=== PATIENT | female | born 1940 | race Caucasian/White ===

== ENCOUNTER 2019-04-21 10:33 | Emergency (ER) | payer MEDICARE, BC ==
[2019-04-21 10:42] VITALS: BP 137/76; PULSE 76; RESP 18; TEMP 98
--- NOTE | 2019-04-21 11:37 | US ---
EXAMINATION TYPE: US venous doppler duplex LE LT DATE OF EXAM: 04/21/2019 10:56 AM COMPARISON: NONE CLINICAL HISTORY: pain, swelling. SIDE PERFORMED: Left TECHNIQUE: The lower extremity deep venous system is examined utilizing real time linear array sonog moose with graded compression, doppler sonography and color-flow sonography. VESSELS IMAGED: External Iliac Vein (EIV) Common Femoral Vein Deep Femoral Vein Greater Saphenous Vein * Femoral Vein Popliteal Vein Small Saphenous Vein * Proximal Calf Veins (* superficial vessels) There is a 4.4 x 1.7 x 2.7 cm popliteal fossa cyst. Left Leg: Negative for DVT Fluid collection left medial pop fossa measures 4.4 x 1.7 x 2.7 cm. IMPRESSION: 1. THIS EXAMINATION IS NEGATIVE FOR DVT WITHIN THE LEFT LEG. 2. LEFT-SIDED POPLITEAL FOSSA CYST.
--- NOTE | 2019-04-21 11:46 | XR ---
EXAMINATION TYPE: XR knee complete LT , 3 VIEWS DATE OF EXAM ORDERED: 04/21/2019 HISTORY: pain, swelling. COMPARISON: None. FINDINGS: There is peaking of intercondylar spines. No fracture or dislocation is seen. There is ful lness in the suprapatellar region suggesting a small effusion. IMPRESSION: 1. NO ACUTE OSSEOUS LESION. 2. EARLIEST CHANGES OF OSTEOARTHRITIS WITH A CONCOMITANT EFFUSION.
--- NOTE | 2019-04-21 12:03 | ED ---
Lower Extremity Injury HPI - General Chief Complaint: Extremity Injury, Lower Stated Complaint: left knee pain Time Seen by Provider: 04/21/19 10:42 Source: patient, RN notes reviewed Mode of arrival: ambulatory Limitations: no limitations - History of Present Illness Initial Comments: 78-year-old female presents emergency Department with chief complaint of left knee pain. This has been ongoing injury. Patient did she initially had a fracture fibular head. Patient states that that healed over she was doing physical therapy states that she went to [place] and twisted her knee at the airport. She states that she went to get back in March ER bursitis. Patient has not. Recent with orthopedic physician. She states her knee is swollen, leg is swollen denies any fevers or chills. - Related Data Allergies Allergy/AdvReac Type Severity Reaction Status Date / Time No Known Allergies Allergy Verified 04/21/19 10:36 Review of Systems ROS Statement: Those systems with pertinent positive or pertinent negative responses have been documented in the HPI. ROS Other: All systems not noted in ROS Statement are negative. Past Medical History Past Medical History: Cancer, Hyperlipidemia, Hypertension History of Any Multi-Drug Resistant Organisms: None Reported Past Surgical History: Breast Surgery Additional Past Surgical History / Comment(s): L mastectomy, partial pancreas removed for "pre cancer" Past Psychological History: No Psychological Hx Reported Smoking Status: Former smoker Past Alcohol Use History: Occasional Past Drug Use History: None Reported General Exam Limitations: no limitations General appearance: alert, in no apparent distress Head exam: Present: atraumatic, normocephalic, normal inspection Respiratory exam: Present: normal lung sounds bilaterally. Absent: respiratory distress, wheezes, rales, rhonchi, stridor Cardiovascular Exam: Present: regular rate, normal rhythm, normal heart sounds. Absent: systolic murmur, diastolic murmur, rubs, gallop, clicks Extremities exam: Present: other (Left knee there is mild swelling noted, tenderness the popliteal region pedal pulses equal bilaterally there is minimal 1+ swelling, , patient has limited range of motion secondary to pain.) Neurological exam: Present: alert Skin exam: Present: warm, dry, intact, normal color. Absent: rash Course Vital Signs 04/21/19 10:36 Temperature 98 F Pulse Rate 76 Respiratory 18 Rate Blood Pressure 137/76 O2 Sat by Pulse 98 Oximetry Medical Decision Making - Medical Decision Making X-ray shows joint effusion, mild arthritis changes, ultrasound shows popliteal cyst negative for DVT, patient has a Rivas's cyst. Patient will follow-up with orthopedics. We discussed rest ice elevation anti-inflammatories Jae wrap was applied. Disposition Clinical Impression: Synovial cyst of popliteal space [Rivas], left knee, Left knee pain Disposition: HOME SELF-CARE Condition: Stable Instructions (If sedation given, give patient instructions): Knee Sprain (ED) Additional Instructions: Please return to the Emergency Department if symptoms worsen or any other concerns. Is patient prescribed a controlled substance at d/c from ED?: No Referrals: Medhat Richardson MD [Primary Care Provider] - 1-2 days Terell Plata DO [Doctor of Osteopathic Medicine] - 1-2 days Time of Disposition: 12:00
[2019-04-21] MEDS ORDERED: ACET/COD 300 MG/30 MG STARTER PACK 6 TAB BTL PO STA (12:13)
== END 2019-04-21 12:15 | disposition home or self-care (01) ==
LOC: EC 10:33
DX: M71.22 Synovial cyst of popliteal space [Baker], left knee (principal); M79.89 Other specified soft tissue disorders; I10 Essential (primary) hypertension; E78.5 Hyperlipidemia, unspecified; Z87.891 Personal history of nicotine dependence; Z90.12 Acquired absence of left breast and nipple
CPT/HCPCS: 99284

== ENCOUNTER → 2019-04-23 | Outpatient (CLI) | payer MEDICARE, BC ==
[2019-04-23 13:58] LABS: HCT 34.3 % (34.0-46.0); HGB 11.2 gm/dL (11.4-16.0); MCH 30.8 pg (25.0-35.0); MCHC 32.7 g/dL (31.0-37.0); MCV 94.1 fL (80.0-100.0); Mean Platelet Volume 7.4; Platelet Count 588 k/uL (150-450); RBC 3.65 m/uL (3.80-5.40); RDW 13.7 % (11.5-15.5); WBC 16.9 k/uL (3.8-10.6)
[2019-04-23 14:14] LABS: Anisocytosis (M) Present; Eosinophils # (M) 0.17 k/uL (0-0.7); Lymphocytes # (M) 2.54 k/uL (1.0-4.8); Monocytes # (M) 3.21 k/uL (0-1.0); Neutrophils % (M) 66 %; Nucleated Red Blood Cells 0 /100 WBC (0-0); Poikilocytosis (M) Present; Total Cells Counted 200
[2019-04-23 14:15] LABS: Target Cells Present
[2019-04-23 14:55] LABS: Appearance,BF Cloudy; Color,BF Yellow; Nucleated Cells, Body Fluid 51800 /uL; RBC, Body Fluid 10700 /uL
[2019-04-23 14:57] LABS: Mononuclear WBC,Body Fluid 2 %; Polynuclear WBC,Body Fluid 98 %; Total Cells Counted,Body Fluid 100
[2019-04-23 15:32] LABS: Erythrocyte Sedimentation Rate 92 mm/hr (0-20)
== END | disposition home or self-care (01) ==
LOC: LABWHC1 12:28
PROVIDERS: ATTEND Orthopaedic Surgery
DX: M25.562 Pain in left knee (principal); M25.462 Effusion, left knee
CPT/HCPCS: 36415; 85025; 85652; 86140; 87070; 87075; 87205; 89050; 89060

== ENCOUNTER 2019-04-26 10:09 | Inpatient (IN) | payer MEDICARE, BC ==
[2019-04-26] MEDS ORDERED: MAGNESIUM HYDROXIDE 2,400 MG/10 ML CUP PO PRN (10:16)
[2019-04-26] MEDS ORDERED: HYDROmorphone 0.5 MG/0.5 ML SYRINGE IVP PRN ×2 (10:16)
[2019-04-26] MEDS ORDERED: NA PHOS,M-B/NA PHOS,DI-BA 133 ML ENEMA RECTAL PRN (10:16)
[2019-04-26] MEDS ORDERED: ONDANSETRON 4 MG/2 ML VIAL IVP PRN (10:16)
[2019-04-26] MEDS ORDERED: HYDROcodone/APAP 5-325MG 1 EACH TAB PO PRN (10:16)
[2019-04-26] MEDS ORDERED: BISACODYL 10 MG SUPP RECTAL PRN (10:16)
[2019-04-26] MEDS ORDERED: NALOXONE 0.4 MG/ML 1 ML VIAL IV PRN (10:16)
[2019-04-26] MEDS: HYDROcodone/APAP 5-325MG 1 EACH TAB PO PRN ×2 (15:12→21:36)
[2019-04-26] MEDS: SODIUM CHLORIDE 0.9% 1,000 ML IV SCH (15:13)
[2019-04-26 15:31] LABS: Basophils # (A) 0.2 k/uL (0-0.2); Basophils % (A) 1 %; Eosinophils # (A) 0.3 k/uL (0-0.7); Eosinophils % (A) 2 %; HCT 32.4 % (34.0-46.0); HGB 10.6 gm/dL (11.4-16.0); Hypochromasia Slight; Lymphocytes # (A) 2.1 k/uL (1.0-4.8); Lymphocytes % (A) 13 %; MCH 30.8 pg (25.0-35.0); MCHC 32.7 g/dL (31.0-37.0); MCV 94.2 fL (80.0-100.0); Mean Platelet Volume 6.5; Monocytes % (A) 6 %; Neutrophils % (A) 75 %; Platelet Count 694 k/uL (150-450); RBC 3.44 m/uL (3.80-5.40); RDW 13.6 % (11.5-15.5); WBC 15.9 k/uL (3.8-10.6)
[2019-04-26 15:36] LABS: INR 1.1 (<1.2); Prothrombin Time 11.4 sec (9.0-12.0)
[2019-04-26 15:55] LABS: ALT 56 U/L (9-52); AST 63 U/L (14-36); African American GFR (CKD) >90 (>60 ml/min/1.73 sqM); Albumin 3.1 g/dL (3.5-5.0); Alkaline Phosphatase 178 U/L (38-126); Anion Gap 9 mmol/L; Blood Urea Nitrogen 17 mg/dL (7-17); Carbon Dioxide 31 mmol/L (22-30); Chloride 100 mmol/L (98-107); Glucose 187 mg/dL (74-99); Non-African American GFR(CKD) 79 (>60 ml/min/1.73 sqM); Sodium 140 mmol/L (137-145); Total Bilirubin 0.4 mg/dL (0.2-1.3); Total Protein 6.6 g/dL (6.3-8.2)
[2019-04-26 16:08] LABS: C Reactive Protein 149.7 mg/L (<10.0)
[2019-04-26] MEDS: amLODIPine 5 MG TAB PO SCH (16:27)
--- NOTE | 2019-04-26 17:45 | P.CONS ---
History of Present Illness - Reason for Consult Consult date: 04/26/19 Medical management Requesting physician: Terell Plata - Chief Complaint Left knee swollen - History of Present Illness Consultation: This is a very pleasant 78-year-old patient of Dr. Medhat Richardson. Chronic stable medical conditions include GERD, hypertension, hyperlipidemia, primary osteoarthritis, macular degeneration. Had a baseline uses a walker. Patient just went on a group trip to [place] and returned on April 03. Patient subsequently developed pain swelling of the left knee with progressively gotten worse. Also fever and chills. When [facility] on April 05. Was given a diagnosis of acute bursitis. Was given antibiotics, local ice pack and told to follow a Dr. Plata. She wanted Dr. Plata's office 2 days ago. In the left knee was drained. I'm not sure this was the bursa or the knee joint. Fluid was positive for E. coli. Patient had been having fever or chills at home. Tired rundown body aches. She was sent in to get admitted for the same. She did have an ultrasound in the ER that showed a popliteal cyst. N egative for DVT. Patient denies any insect bites. No diarrhea. No pretibial skin. No respiratory symptoms. No headaches no dizziness. No other involvement of the joint. This. Cataract Review of systems: GEN.: Fever chills, body aches EYES: None HEENT: None NECK: None RESPIRATORY: None CARDIOVASCULAR: None GASTROINTESTINAL: None GENITOURINARY: None MUSCULOSKELETAL: Arthritic pain in joints as above LYMPHATICS: None HEMATOLOGICAL: None PSYCHIATRY: None NEUROLOGICAL: None Social history: Lives alone. Does use a walker. Smoked for 25 years. Stopped in 1981. Alcohol rarely Physical examination: VITAL SIGNS: 98.1, 69, 18, 175/68, 99% room air GENERAL: BMI 24.4, sitting up in bed, not in distress. EYES: Pupils equal. Conjunctiva normal. HEENT: External appearance of nose and ears normal, oral cavity grossly normal. NECK: JVD not raised; masses not palpable. HEART: First and second heart sounds are normal; no edema. LUNGS: Respiratory rate normal; decreased breath sounds. ABDOMEN: Soft, nontender, liver spleen not palpable, no masses palpable. PSYCH: Alert and oriented x3; mood and affect normal. NEUROLOGICAL: Cranial nerves grossly intact; no facial asymmetry, power and sensation grossly intact. LYMPHATICS: No lymph nodes palpable in the axilla and neck MUSCULOSKELETAL: Evidence of significant OA in the hands. Left knee slightly enlarged compared to the right. There is a Band-Aid at the site that was tapped. Some signs of inflammation INVESTIGATIONS, reviewed in the clinical context: White count 15.9 hemoglobin 10.6 platelets 694 progression for bun 17 creatinine 0.73 AST 63 ALT 56 alk phos 178 C-reactive protein 149 Sinobronchial fluid-RBC 10,700, nucleated cells 51,000, son over crystals none Venous Doppler-negative for DVT and a left-sided popliteal fossa cyst on April 21 Synovitis fluid culture from April 23 growing-E. coli Assessment: -This is a very pleasant lady with just returned from a trip to [place] on April 03." Developed Fever , chills, myalgia, swelling of the left knee. Had gone to [facility] on April 05. Was given a diagnosis of acute bursitis On April 21 came to the [facility] ER, was ruled out for DVT. Saw Dr. Plata on April 23. Left knee was drained. Synovitis fluid has grown E. coli. This is an unusual put still possibleorganism growing from the knee joint. Currently patient is afebrile, though has a elevated white count, elevated CRP. -Mild hepatitis suspect from infection -GERD -Hyperlipidemia -Essential hypertension -Primary osteoarthritis -Chronic gait dysfunction uses a walker -Left knee popliteal cyst, asymptomatic Plan: Patient was started on IV ceftriaxone. Home medications resumed. We'll give Lovenox for DVT prophylaxis. ID was consulted. We'll give IV fluids. Care was discussed with the patient. Thank you Dr. 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 Past Anesthesia/Blood Transfusion Reactions: No Reported Reaction Smoking Status: Former smoker - Past Family History Father Family Medical History: CVA/TIA, Myocardial Infarction (RI) Additional Family Medical History / Comment(s): Father of a RI and CVA at the age of 75yrs. Mother Family Medical History: Myocardial Infarction (RI) Additional Family Medical History / Comment(s): Mother of a RI at the age of 80yrs. Sister(s) Family Medical History: Coronary Artery Disease (CAD), CVA/TIA Additional Family Medical History / Comment(s): Sister at 78yrs after going into hospital for coronary stents and suffering a brain bleed in the night. Medications and Allergies Home Medications Medication Instructions Recorded Confirmed Type Aspirin 81 mg PO HS 04/26/19 04/26/19 History Atenolol [Tenormin] 25 mg PO DAILY 04/26/19 04/26/19 History Rosuvastatin Calcium 5 mg PO HS 04/26/19 04/26/19 History Vit C/E/Zn/Coppr/Lutein/Zeaxan 1 cap PO BID 04/26/19 04/26/19 History [Preservision Areds 2 Softgel] amLODIPine [Norvasc] 5 mg PO DAILY 04/26/19 04/26/19 History Allergies Allergy/AdvReac Type Severity Reaction Status Date / Time No Known Allergies Allergy Verified 04/26/19 15:06 Physical Exam Vitals: Vital Signs Temp Pulse Resp BP Pulse Ox 04/26/19 14:12 98.1 F 69 18 175/68 99 Intake and Output 04/26/19 04/26/19 04/26/19 06:59 14:59 22:59 Intake Total 350 Balance 350 Intake: Oral 350 Other: # Voids 1 Weight 62.5 kg Results CBC & Chem 7: 04/26/19 15:14 04/26/19 15:14 Labs: Abnormal Lab Results - Last 24 Hours (Table) 04/26/19 04/26/19 Range/Units 15:14 15:14 WBC 15.9 H (3.8-10.6) k/uL RBC 3.44 L (3.80-5.40) m/uL Hgb 10.6 L (11.4-16.0) gm/dL Hct 32.4 L (34.0-46.0) % Plt Count 694 H (150-450) k/uL Neutrophils # 12.0 H (1.3-7.7) k/uL Carbon Dioxide 31 H (22-30) mmol/L Glucose 187 H (74-99) mg/dL AST 63 H (14-36) U/L ALT 56 H (9-52) U/L Alkaline Phosphatase 178 H (38-126) U/L C-Reactive Protein 149.7 H (<10.0) mg/L Albumin 3.1 L (3.5-5.0) g/dL
[2019-04-26 17:53] LABS: Erythrocyte Sedimentation Rate 86 mm/hr (0-20)
[2019-04-26] MEDS: SENNOSIDES-DOCUSATE SODIUM 1 EACH TAB PO SCH (21:06)
[2019-04-26] MEDS: ATORVASTATIN 10 MG TAB PO SCH (21:06)
[2019-04-26] MEDS: ASPIRIN 81 MG PO SCH (21:06)
[2019-04-26] MEDS: ENOXAPARIN 40 MG/0.4 ML SYRINGE SQ SCH (21:06)
[2019-04-27] MEDS: SODIUM CHLORIDE 0.9% 1,000 ML IV SCH ×3 (01:55→19:03)
[2019-04-27 04:57] LABS: Appearance,Urine Clear (Clear); Bilirubin,Urine Negative (Negative); Blood,Urine Negative (Negative); Color,Urine Yellow; Glucose,Urine (UA) Negative (Negative); Ketones,Urine Negative (Negative); Leukocyte Esterase,Urine Negative (Negative); Nitrite,Urine Negative (Negative); PH, Urine 6.5 (5.0-8.0); Protein,Urine Trace (Negative); Specific Gravity,Urine 1.016 (1.001-1.035)
[2019-04-27] MEDS: HYDROmorphone 0.5 MG/0.5 ML SYRINGE IVP PRN ×3 (05:16→17:03)
[2019-04-27] MEDS: ATENOLOL 25 MG TAB PO SCH (09:07)
[2019-04-27] MEDS: ENOXAPARIN 40 MG/0.4 ML SYRINGE SQ SCH (09:07)
[2019-04-27] MEDS: amLODIPine 5 MG TAB PO SCH (09:07)
--- NOTE | 2019-04-27 09:13 | P.HPOR ---
History of Present Illness H&P Date: 04/27/19 This is a 78 year-old female who is admitted for infection of the left knee. Patient is a known patient to [facility]. Patient had a left knee aspiration performed as an outpatient on 04/23/[address] Terell Plata and 20cc of cloudy fluid was obtained. The fluid was sent for analysis and cultures came back positive for E. Coli. Patient states that over the last couple of days she has felt feverish and measured her temperature at 101F orally. Patient states that she has been having pain in her left knee since twisting her left knee in March on a trip to [place]. Patient states that when she returned from her trip she became ill with fevers and the left knee became swollen. Patient also has a history of a left tibia fracture in December 2018. Patient's past medical history is significant for hypertension, hyperlipidemia, and breast cancer. Patient denies any numbness, weakness, tingling, abdominal pain, shortness of breath or chest pain. Review of Systems See HPI. Past Medical History Past Medical History: Cancer, Hyperlipidemia, Hypertension History of Any Multi-Drug Resistant Organisms: None Reported Past Surgical History: Breast Surgery Additional Past Surgical History / Comment(s): L mastectomy, partial pancreas removed for "pre cancer" Past Psychological History: No Psychological Hx Reported Smoking Status: Former smoker Past Alcohol Use History: Occasional Past Drug Use History: None Reported - Past Family History Father Family Medical History: CVA/TIA, Myocardial Infarction (VT) Additional Family Medical History / Comment(s): Father of a VT and CVA at the age of 75yrs. Mother Family Medical History: Myocardial Infarction (VT) Additional Family Medical History / Comment(s): Mother of a VT at the age of 80yrs. Sister(s) Family Medical History: Coronary Artery Disease (CAD), CVA/TIA Additional Family Medical History / Comment(s): Sister at 78yrs after going into hospital for coronary stents and suffering a brain bleed in the night. Medications and Allergies Home Medications Medication Instructions Recorded Confirmed Type Aspirin 81 mg PO HS 04/26/19 04/26/19 History Atenolol [Tenormin] 25 mg PO DAILY 04/26/19 04/26/19 History Rosuvastatin Calcium 5 mg PO HS 04/26/19 04/26/19 History Vit C/E/Zn/Coppr/Lutein/Zeaxan 1 cap PO BID 04/26/19 04/26/19 History [Preservision Areds 2 Softgel] amLODIPine [Norvasc] 5 mg PO DAILY 04/26/19 04/26/19 History Allergies Allergy/AdvReac Type Severity Reaction Status Date / Time No Known Allergies Allergy Verified 04/26/19 15:06 Physical Examination On exam patient is resting comfortably in bed in no acute distress. Patient is alert and oriented 3. There is a moderate effusion of the left knee. Patient has limited range of motion of the left knee due to pain. There is no erythema or ecchymosis and skin is intact. Calf is soft and nontender to palpation. Sensation is intact. Patient has full range of motion of the left foot and ankle without pain or difficulty. Neurovascular status circulatory status are intact. Results - Labs Result Diagrams: 04/26/19 15:14 04/26/19 15:14 Assessment and Plan (1) Infection of left knee Current Visit: No Status: Acute Code(s): M00.9 - PYOGENIC ARTHRITIS, UNSPECIFIED SNOMED Code(s): 103599671 (2) Left knee pain Current Visit: No Status: Acute Code(s): M25.562 - PAIN IN LEFT KNEE SNOMED Code(s): 21782419 Plan: 1. Continue pain control. 2. Continue IV antibiotics. 3. Appreciate input from internal medicine and infectious disease. 4. Planning for arthroscopic I&D of the left knee today with Dr. Terell Plata pending medical clearance and patient consent.
[2019-04-27 11:41] VITALS: BMI 24.4
--- NOTE | 2019-04-27 12:55 | P.CONS ---
History of Present Illness - Reason for Consult Consult date: 04/27/19 Left knee infection - History of Present Illness This is a 78-year-old female gives history of recent travel to [place]. Patient states that when she was getting onto the plane to leave for age and she twisted her left knee and had pain during her entire trip. She did do approximate 5 miles of walking every day. She returned on April 03. Pain continued to worsen and she went to [facility] was diagnosed with bursitis. Physical therapy was also arranged. She states she had one day where she had significant body aches and fever to 101 and chills. Then she noted that her knee suddenly swelled worse than before and on April 21, patient came into [facility] emergency center for evaluation. X-ray showed joint effusion, mild arthritic changes. Ultrasound showed a popliteal cyst and negative for DVT. Patient was instructed to follow-up with orthopedics. Patient was seen in the office on April [address] Plata and he performed drainage of 20 mL of cloudy fluid. On April 23, patient had white count of 16.9, sed rate 92, CRP 23. Synovial fluid was cloudy yellow and analysis showed RBCs of 10,700, nucleated cells 51,800, polynuclear 98, mononuclear to. No crystals identified. [facility] and report is not currently available. She states the day she had MRI, she was having significant fever and chills. Patient was then admitted on April 26 to the [facility] floor and started on IV Rocephin. Repeat lab work revealed white count of 15.9, sed rate 86, CRP 149, blood sugar 187, AST 63, ALT 56, alkaline p hosphatase 178. Urinalysis negative for infection. Patient is scheduled for washout left knee joint this afternoon. Synovial fluid culture from April 23 positive for E. coli. Patient has a significant past medical history of pancreatic cancer with resection of two thirds of the pancreas, left breast cancer with mastectomy. Patient does have a history of a left tibial fracture in December 2018 which she states completely healed and she was doing well with ambulation prior to injury in March. Review of Systems All systems: negative Constitutional: Reports chills, Reports fatigue, Reports fever, Denies anorexia, Denies lethargy, Denies malaise, Denies poor appetite, Denies weight loss Eyes: denies blurred vision, denies pain Ears, nose, mouth and throat: Denies dental pain, Denies headache, Denies mouth pain, Denies nasal congestion, Denies nasal discharge, Denies sore throat, Denies vertigo Cardiovascular: Denies chest pain, Denies decreased exercise tolerance, Denies dyspnea on exertion, Denies leg edema, Denies lightheadedness, Denies shortness of breath Respiratory: Denies cough, Denies cough with sputum, Denies dyspnea, Denies excessive sputum, Denies hemoptysis, Denies home oxygen, Denies wheezing Gastrointestinal: Denies abdominal pain, Denies diarrhea, Denies loss of appetite, Denies nausea, Denies vomiting Genitourinary: Denies dysuria, Denies hematuria, Denies urgency, Denies urinary frequency Musculoskeletal: Reports myalgias, Denies frequent falls, Denies gait dysfunction, Denies muscle weakness Musculoskeletal: left: knee pain, knee stiffness, knee swelling Integumentary: Denies pruritus, Denies rash, Denies wounds Neurological: Denies change in mentation, Denies change in speech, Denies gait dysfunction, Denies numbness, Denies weakness Psychiatric: Denies anxiety, Denies depression Endocrine: Denies fatigue, Denies weight change Past Medical History Past Medical History: Cancer, Hyperlipidemia, Hypertension Additional Past Medical History / Comment(s): Pre cancerous pancreatic tumor with removal-has 1/3 pancreas left, L breast cancer with mastectomy, macular degeneration bilaterally, History of Any Multi-Drug Resistant Organisms: None Reported Past Surgical History: Breast Surgery Additional Past Surgical History / Comment(s): L mastectomy, partial pancreas removed for "pre cancer" Past Anesthesia/Blood Transfusion Reactions: No Reported Reaction Past Psychological History: No Psychological Hx Reported Smoking Status: Former smoker Past Alcohol Use History: Occasional Additional Past Alcohol Use History / Comment(s): The patient was a smoker and quit in 1981. She denies any illicit drug use, she does have occasional alcohol use. Patient is a and lives alone. No pets in the home. Past Drug Use History: None Reported - Past Family History Father Family Medical History: CVA/TIA, Myocardial Infarction (VT) Additional Family Medical History / Comment(s): Father of a VT and CVA at the age of 75yrs. Mother Family Medical History: Myocardial Infarction (VT) Additional Family Medical History / Comment(s): Mother of a VT at the age of 80yrs. Sister(s) Family Medical History: Coronary Artery Disease (CAD), CVA/TIA Additional Family Medical History / Comment(s): Sister at 78yrs after going into hospital for coronary stents and suffering a brain bleed in the night. Medications and Allergies Home Medications Medication Instructions Recorded Confirmed Type Aspirin 81 mg PO HS 04/26/19 04/26/19 History Atenolol [Tenormin] 25 mg PO DAILY 04/26/19 04/26/19 History Rosuvastatin Calcium 5 mg PO HS 04/26/19 04/26/19 History Vit C/E/Zn/Coppr/Lutein/Zeaxan 1 cap PO BID 04/26/19 04/26/19 History [Preservision Areds 2 Softgel] amLODIPine [Norvasc] 5 mg PO DAILY 04/26/19 04/26/19 History Allergies Allergy/AdvReac Type Severity Reaction Status Date / Time No Known Allergies Allergy Verified 04/26/19 15:06 Physical Exam Vitals: Vital Signs Temp Pulse Resp BP Pulse Ox 04/27/19 07:00 98.5 F 80 18 166/69 91 L 04/27/19 01:47 99.4 F 64 17 148/69 91 L 04/27/19 01:40 98.5 F 04/26/19 19:42 98.2 F 67 22 158/57 95 04/26/19 16:00 18 04/26/19 14:12 98.1 F 69 18 175/68 99 Intake and Output 04/26/19 04/27/19 04/27/19 22:59 06:59 14:59 Other: Voiding Method Toilet # Voids 1 1 Weight 62.5 kg 62.5 kg Gen: This is a 78-year-old female. Patient is resting in bed and appears to be comfortable and in no acute distress. HEENT: Head is atraumatic, normocephalic. Pupils equal, round. Sclerae is anicteric. Oral mucous membranes are moist. No thrush noted. NECK: Supple. No JVD. No lymphadenopathy. No thyromegaly. LUNGS: Clear to auscultation. No wheezes or rhonchi. No intercostal retractions. HEART: Regular rate and rhythm. No murmur. ABDOMEN: Soft. Bowel sounds are present. No masses. No tenderness. EXTREMITIES: No pedal edema. No calf tenderness. Effusion noted to the left knee with warmth to touch. No open wounds or drainage. NEUROLOGICAL: Patient is awake, alert and oriented x3. Cranial nerves 2 through 12 are grossly intact. Results Results: Laboratory Results WBC 15.9 k/uL (3.8-10.6) H 04/26/19 15:14 RBC 3.44 m/uL (3.80-5.40) L 04/26/19 15:14 Hgb 10.6 gm/dL (11.4-16.0) L 04/26/19 15:14 Hct 32.4 % (34.0-46.0) L 04/26/19 15:14 MCV 94.2 fL (80.0-100.0) 04/26/19 15:14 MCH 30.8 pg (25.0-35.0) 04/26/19 15:14 MCHC 32.7 g/dL (31.0-37.0) 04/26/19 15:14 RDW 13.6 % (11.5-15.5) 04/26/19 15:14 Plt Count 694 k/uL (150-450) H 04/26/19 15:14 Neutrophils % 75 % 04/26/19 15:14 Lymphocytes % 13 % 04/26/19 15:14 Monocytes % 6 % 04/26/19 15:14 Eosinophils % 2 % 04/26/19 15:14 Basophils % 1 % 04/26/19 15:14 Neutrophils # 12.0 k/uL (1.3-7.7) H 04/26/19 15:14 Lymphocytes # 2.1 k/uL (1.0-4.8) 04/26/19 15:14 Monocytes # 1.0 k/uL (0-1.0) 04/26/19 15:14 Eosinophils # 0.3 k/uL (0-0.7) 04/26/19 15:14 Basophils # 0.2 k/uL (0-0.2) 04/26/19 15:14 Hypochromasia Slight 04/26/19 15:14 ESR 86 mm/hr (0-20) H 04/26/19 15:14 PT 11.4 sec (9.0-12.0) 04/26/19 15:14 INR 1.1 (<1.2) 04/26/19 15:14 Sodium 140 mmol/L (137-145) 04/26/19 15:14 Potassium 4.0 mmol/L (3.5-5.1) 04/26/19 15:14 Chloride 100 mmol/L (98-107) 04/26/19 15:14 Carbon Dioxide 31 mmol/L (22-30) H 04/26/19 15:14 Anion Gap 9 mmol/L 04/26/19 15:14 BUN 17 mg/dL (7-17) 04/26/19 15:14 Creatinine 0.73 mg/dL (0.52-1.04) 04/26/19 15:14 Est GFR (CKD-EPI)AfAm >90 (>60 ml/min/1.73 sqM) 04/26/19 15:14 Est GFR (CKD-EPI)NonAf 79 (>60 ml/min/1.73 sqM) 04/26/19 15:14 Glucose 187 mg/dL (74-99) H 04/26/19 15:14 Calcium 9.0 mg/dL (8.4-10.2) 04/26/19 15:14 Total Bilirubin 0.4 mg/dL (0.2-1.3) 04/26/19 15:14 AST 63 U/L (14-36) H 04/26/19 15:14 ALT 56 U/L (9-52) H 04/26/19 15:14 Alkaline Phosphatase 178 U/L (38-126) H 04/26/19 15:14 C-Reactive Protein 149.7 mg/L (<10.0) H 04/26/19 15:14 Total Protein 6.6 g/dL (6.3-8.2) 04/26/19 15:14 Albumin 3.1 g/dL (3.5-5.0) L 04/26/19 15:14 Urine Color Yellow 04/27/19 04:45 Urine Appearance Clear (Clear) 04/27/19 04:45 Urine pH 6.5 (5.0-8.0) 04/27/19 04:45 Ur Specific [place] 1.016 (1.001-1.035) 04/27/19 04:45 Urine Protein Trace (Negative) H 04/27/19 04:45 Urine Glucose (UA) Negative (Negative) 04/27/19 04:45 Urine Ketones Negative (Negative) 04/27/19 04:45 Urine Blood Negative (Negative) 04/27/19 04:45 Urine Nitrite Negative (Negative) 04/27/19 04:45 Urine Bilirubin Negative (Negative) 04/27/19 04:45 Urine Urobilinogen 4.0 mg/dL (<2.0) 04/27/19 04:45 Ur Leukocyte Esterase Negative (Negative) 04/27/19 04:45 CBC & Chem 7: 04/26/19 15:14 04/26/19 15:14 Labs: Abnormal Lab Results - Last 24 Hours (Table) 04/26/19 04/26/19 04/27/19 Range/Units 15:14 15:14 04:45 WBC 15.9 H (3.8-10.6) k/uL RBC 3.44 L (3.80-5.40) m/uL Hgb 10.6 L (11.4-16.0) gm/dL Hct 32.4 L (34.0-46.0) % Plt Count 694 H (150-450) k/uL Neutrophils # 12.0 H (1.3-7.7) k/uL ESR 86 H (0-20) mm/hr Carbon Dioxide 31 H (22-30) mmol/L Glucose 187 H (74-99) mg/dL AST 63 H (14-36) U/L ALT 56 H (9-52) U/L Alkaline Phosphatase 178 H (38-126) U/L C-Reactive Protein 149.7 H (<10.0) mg/L Albumin 3.1 L (3.5-5.0) g/dL Urine Protein Trace H (Negative) Assessment and Plan Plan: This is a 78-year-old female who presents to hospital with septic joint left knee, telida joint and presented with signs of sepsis including leukocytosis and fever. Patient is currently on Rocephin. Wound culture is positive for E. coli. Continue supportive care. Further recommendations as patient progresses. Impression and plan of care have been directed as dictated by the signing physician. Naomi Padilla nurse practitioner acting as scribe for signing p monroe.
[2019-04-27] MEDS ORDERED: LACTATED RINGERS 1,000 ML IV ONE (13:25)
[2019-04-27] MEDS ORDERED: BUPIVACAINE (PF) 0.5% 30 ML VIAL SQ ONE (14:01)
[2019-04-27] MEDS ORDERED: PROPOFOL 10 MG/ML 20 ML VIAL IV ONE (14:02)
[2019-04-27] MEDS ORDERED: fentaNYL (PF) 50 MCG/ML 2 ML AMP ONE (14:02)
[2019-04-27] MEDS ORDERED: MIDAZOLAM 2 MG/2 ML VIAL ONE (14:02)
[2019-04-27] MEDS ORDERED: LIDOCAINE 1% INJ 10MG/ML (20 ML MDV) ONE (14:02)
[2019-04-27] MEDS ORDERED: KETOROLAC 30 MG/ML 1 ML VIAL ONE (14:02)
[2019-04-27] MEDS ORDERED: SUCCINYLCHOLINE CHLORIDE 100 MG/5 ML SYR IV ONE (14:02)
[2019-04-27] MEDS ORDERED: HYDROmorphone (PF) 1 MG/ML ONE (14:02)
[2019-04-27] MEDS ORDERED: NALOXONE 0.4 MG/ML 1 ML VIAL IV PRN (14:22)
--- NOTE | 2019-04-27 15:12 | P.OP ---
Date of Procedure: 04/27/19 Preoperative Diagnosis: Septic arthritis right knee Postoperative Diagnosis: 1. Septic arthritis right knee 2. Torn medial meniscus 3. 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 Synovitis Procedure(s) Performed: 1. Arthroscopy of the right knee with arthroscopic irrigation and debridement for septic arthritis 2. Partial medial meniscectomy (15% of meniscus excised) 3. Chondroplasty of the medial femoral and patellofemoral compartments 4. Partial synovectomy of the medial femoral, lateral femoral, and patellofemoral compartments Anesthesia: SAMMYA Surgeon: Terell Plata Estimated Blood Loss (ml): 10 Pathology: other (Cultures from left knee) Condition: stable Disposition: PACU Indications for Procedure: This is a 78-year-old female that presented to my office with a painful swollen knee. An aspiration was performed which produced cloudy fluid which was sent for cell count and cultures. Her culture results revealed rare E. coli and after discussing the surgical and nonsurgical treatment options I recommended an arthroscopic irrigation debridement. She also had an MRI which showed a torn medial meniscus. Informed consent was obtained. Operative Findings: The operative findings are consistent with septic arthritis the right knee as well as a torn medial meniscus, grade 2 chondral malacia medial and patellofemoral compartments, and synovitis. Description of Procedure: Patient was seen and evaluated in the preoperative area, the operative site was marked with a skin marker. The patient was then brought to the operating room. Antibiotics were withheld because patient is already on scheduled antibiotics ptosis for her septic arthritis. A general anesthetic was administered by the anesthesia department. Tourniquet was placed on the left upper thigh and the left lower extremity was then prepped and draped in usual sterile fashion. A universal timeout was then performed confirming the patient's name, surgical site, ALLERGIES, and consent. The limb was then exsanguinated and tourniquet insufflated to 250 mmHg. Standard inferior medial and inferior lateral portals were established in the knee. The trochar was inserted in the inferolateral portal. A moderate amount of purulent material was encountered, and this was cultured. Examination began at the patellofemoral joint. There is noted to be grade 2-3 chondral malacia the patellofemoral compartment and a large amount of synovitis. Next the medial compartment was visualized. There was a tear of the posterior horn of the medial meniscus. There was grade 2-3 chondral malacia the mediofemoral compartment and synovitis. The notch area was then visualized and the ACL was intact. The Lateral compartment was then visualized and the lateral meniscus was found to be intact, there was no evidence of chondromalacia, but a mild amount of synovitis. Next, using an arthroscopic shaver and a biter, partial medial meniscectomy was performed stable margins. Approximately 15% of meniscus was excised. A partial synovectomy is performed the medial femoral, lateral femoral, patellofemoral compartments. Chondroplasty was also performed of the medial femoral and patellofemoral compartments of the knee. Knee was then copiously irrigated, instruments removed, incisions were closed with 4-0 nylon. 30 mL of half percent plain Marcaine was injected sterilely into the surgical area. A sterile dressing was then applied, and the tourniquet was released. Patient was then transferred to recovery room in stable condition.
[2019-04-27] MEDS: HYDROcodone/APAP 5-325MG 1 EACH TAB PO PRN (20:49)
[2019-04-27] MEDS: ATORVASTATIN 10 MG TAB PO SCH (20:49)
[2019-04-27] MEDS: ASPIRIN 81 MG PO SCH (20:49)
[2019-04-27] MEDS: SENNOSIDES-DOCUSATE SODIUM 1 EACH TAB PO SCH (20:50)
--- NOTE | 2019-04-27 23:51 | P.CON ---
Consult Note - . Consult date: 04/27/19 Assessment/Plan:: This is a 78-year-old female gives history of recent travel to [place]. Patient states that when she was getting onto the plane to leave for age and she twisted her left knee and had pain during her entire trip. She did do lila roximate 5 miles of walking every day. She returned on April 03. Pain continued to worsen and she went to [facility] was diagnosed with bursitis. Physical therapy was also arranged. She states she had one day where she had significant body aches and fever to 101 and chills. Then she noted that her knee suddenly swelled worse than before and on April 21, patient came into [facility] emergency center for evaluation. X-ray showed joint effusion, mild arthritic changes. Ultrasound showed a popliteal cyst and negative for DVT. Patient was instructed to follow-up with orthopedics. Patient was seen in the office on April [address] Plata and he performed drainage of 20 mL of cloudy fluid. On April 23, patient had white count of 16.9, sed rate 92, CRP 23. Synovial fluid was cloudy yellow and analysis showed RBCs of 10,700, nucleated cells 51,800, polynuclear 98, mononuclear to. No crystals identified. [facility] and report is not currently available. She states the day she had MRI, she was having significant fever and chills. Patient was then [facility] and started on IV Rocephin. Repeat lab work revealed white count of 15.9, sed rate 86, CRP 149, blood sugar 187, AST 63, ALT 56, alkaline phosphatase 178. Urinalysis negative for infection. Patient is scheduled for washout left knee joint this afternoon. Synovial fluid culture from April 23 positive for E. coli. Patient has a significant past medical history of pancreatic cancer with resection of two thirds of the pancreas, left breast cancer with mastectomy. Patient does have a history of a left tibial fracture in December 2018 which she states completely healed and she was doing well with ambulation prior to injury in March. Please see the consult note is dictated by nurse practitioner Naomi Valerie. This pleasant 78-year-old woman is noted has just returned from her trip to [facility]. She was very cautious about what she ate but certainly did not feel well some of the time because of the difficulties with the food and water. Upon coming home she was doing well until the onset of the severe pain to her knee. Outpatient aspiration showed evidence of E. coli.. Surgical arthroscopic lavage of the left knee shall be occurring today. We discussed the septic arthritis and that intravenous antibiotic therapy is most prudent. Her son and friend are present. Outpatient intravenous antibiotic therapy may be an option however if she is having great difficulties ambulation and since she lives alone may require short-term rehabilitation stay. She wants to go out of town for [facility] and then go to [place] where she myers. We discussed how difficult this she'll be in that short period of time. Going from [place] to [place] to complete her course of IV antibiotic therapy may be possible if she has a physician in [place] who could assume the care when she arrives there. There are home care agencies that are multi state and we'll be able to arrange that if she does have a local physician. Weightbearing status as per orthopedic surgery. At this time planning Rocephin which is a daily infusion. The patient is having significant pain and that is being addressed. The patient's baseline laboratories revealed markedly elevated sed rate and CRP that correlated well with the septic arthritis. Negative evaluation, assessment and plan as dictated by nurse practitioner Mrs. Naomi Padilla.
[2019-04-28] MEDS: SODIUM CHLORIDE 0.9% 1,000 ML IV SCH ×3 (01:55→21:50)
[2019-04-28] MEDS: HYDROcodone/APAP 5-325MG 1 EACH TAB PO PRN ×4 (02:21→20:25)
[2019-04-28 07:46] LABS: Basophils # (A) 0.4 k/uL (0-0.2); Basophils % (A) 3 %; Eosinophils # (A) 0.2 k/uL (0-0.7); Eosinophils % (A) 2 %; HGB 9.8 gm/dL (11.4-16.0); Lymphocytes # (A) 2.4 k/uL (1.0-4.8); Lymphocytes % (A) 17 %; MCHC 30.5 g/dL (31.0-37.0); Mean Platelet Volume 8.6; Monocytes # (A) 1.3 k/uL (0-1.0); Monocytes % (A) 9 %; Neutrophils # (A) 9.5 k/uL (1.3-7.7); Neutrophils % (A) 67 %; Platelet Count 713 k/uL (150-450); RBC 3.36 m/uL (3.80-5.40); RDW 13.8 % (11.5-15.5); WBC 14.1 k/uL (3.8-10.6)
[2019-04-28] MEDS: amLODIPine 5 MG TAB PO SCH (08:39)
[2019-04-28] MEDS: ATENOLOL 25 MG TAB PO SCH (08:39)
[2019-04-28] MEDS: ENOXAPARIN 40 MG/0.4 ML SYRINGE SQ SCH (08:39)
--- NOTE | 2019-04-28 10:16 | P.PN ---
Subjective Progress Note Date: 04/28/19 This patient is a 78-year-old female with past medical history of hypertension, hyperlipidemia, and breast cancer who was admitted to [facility] 04/27/19 for infection of the left knee. She had a left knee aspiration performed as an outpatient on by Dr. Terell Plata, and 20 mL of cloudy fluid was obtained. The fluid was sent for fluid analysis and culture and was positive for E. coli. Patient underwent an arthroscopy of the left knee with irrigation and debridement on 04/27/[address] Terell Plata. Today's postoperative day #1. The patient states he is experiencing mild pain in the left knee currently, which is expected. She states she has very been up with physical therapy today, and is transferring with a walker with minimal issues. She is tolerating her breakfast well. She has not yet a bowel movement postoperatively, she denies abdominal pain. She states she otherwise feels well. She denies fevers, chills, nausea, vomiting, feelings of generalized malaise. Vital signs stable. Objective - Vital Signs Vital signs: Vital Signs Temp 98.1 F 04/28/19 07:00 Pulse 74 04/28/19 07:00 Resp 12 04/28/19 07:00 BP 168/62 04/28/19 07:00 Pulse Ox 92 L 04/28/19 07:00 Intake & Output 04/27/19 04/28/19 04/28/19 18:59 06:59 18:59 Intake Total 850 835 Output Total 5 Balance 845 835 Weight 62.5 kg Intake: IV 850 Intake, IV Titration 835 Amount Sodium Chloride 0.9% 1, 835 000 ml @ 65 mls/hr IV . [id number] [facility] Rx#:[id number] Output: Estimated Blood Loss 5 Other: Voiding Method Bedpan Bedside Commode Bedpan # Voids 1 1 - Exam On examination, the patient is sitting up in bed in no apparent distress. She is alert and oriented 3. On inspection of the left lower extremity, there is an Jae wrap in place of the knee and lower leg. Surgical dressing is not removed today. Patient has good range of motion of her left ankle and foot. Dorsalis pedis pulse palpable, the left lower extremity is warm and well- perfused. Motor and sensory function are intact. Calves are soft and nontender to palpation bilaterally. Vital signs stable. - Labs CBC & Chem 7: 04/28/19 06:36 04/26/19 15:14 Labs: Abnormal Lab Results - Last 24 Hours (Table) 04/28/19 Range/Units 06:36 WBC 14.1 H (3.8-10.6) k/uL RBC 3.36 L (3.80-5.40) m/uL Hgb 9.8 L (11.4-16.0) gm/dL Hct 32.0 L (34.0-46.0) % MCHC 30.5 L (31.0-37.0) g/dL Plt Count 713 H (150-450) k/uL Neutrophils # 9.5 H (1.3-7.7) k/uL Monocytes # 1.3 H (0-1.0) k/uL Basophils # 0.4 H (0-0.2) k/uL Microbiology - Last 24 Hours (Table) 04/27/19 14:39 Gram Stain - Preliminary Knee - Left Wound Culture - Preliminary 04/27/19 14:39 Anaerobic Culture - Preliminary Knee - Left 04/27/19 14:39 Fungal Culture - Preliminary Knee - Left Assessment and Plan Assessment: Left knee septic arthritis status-post arthroscopic irrigation and debridement on 04/27/[address] Terell Plata. Post-operative day #1. Plan: - Weight-bearing as tolerated on the operative leg, with walker. Daily dressing changes beginning tomorrow. - Ice and elevate the knee for pain and swelling control. - Physical therapy for gait and balance training. - Continue pain management. - DVT prophylaxis per internal medicine. - Antibiotics per Dr. Raines and infectious disease team. - Anticipate discharge to rehab vs. home possibly on Tuesday, pending clearance from internal medicine and infectious disease. Patient discussed with Dr. Plata.
[2019-04-28] MEDS: ATORVASTATIN 10 MG TAB PO SCH (20:25)
[2019-04-28] MEDS: SENNOSIDES-DOCUSATE SODIUM 1 EACH TAB PO SCH (20:25)
[2019-04-28] MEDS: ASPIRIN 81 MG PO SCH (20:27)
--- NOTE | 2019-04-28 23:26 | P.PN ---
Progress Note - Text Progress Note Date: 04/28/19 - Chief Complaint Left knee swollen Consultation: This is a very pleasant 78-year-old patient of Dr. Medhat Richardson. Chronic stable medical conditions include GERD, hypertension, hyperlipidemia, primary osteoarthritis, macular degeneration. Had a baseline uses a walker. Patient just went on a group trip to [place] and returned on April 03. Patient subsequently developed pain swelling of the left knee with progressively gotten worse. Also fever and chills. When Dr. Tovar [facility] on April 05. Was given a diagnosis of acute bursitis. Was given antibiotics, local ice pack and told to follow a Dr. Plata. She wanted Dr. Plata's office 2 days ago. In the left knee was drained. I'm not sure this was the bursa or the knee joint. Fluid was positive for E. coli. Patient had been having fever or chills at home. Tired rundown body aches. She was sent in to get admitted for the same. She did have an ultrasound in the ER that showed a popliteal cyst. Negative for DVT. Patient denies any insect bites. No diarrhea. No pretibial skin. No respiratory symptoms. No headaches no dizziness. No other involvement of the joint. Admitted with septic arthritis of the left knee. Today-patient was taken to the operating room yesterday. I&D of the left knee was carried out. Some pain in the left knee. Dressing in place. Review of systems: Was done for constitutional, cardiovascular, GI, pulmonary. relevant finding as above Active Medications Hydrocodone Bitart/Acetaminophen ([place] 5-325) 1 each PO Q6HR PRN PRN Reason: Pain Scale 1 to 5 Hydrocodone Bitart/Acetaminophen ([place] 5-325) 2 each PO Q6HR PRN PRN Reason: Pain Scale 6 to 10 Last Admin: 04/28/19 20:25 Dose: 2 each Documented by: Amlodipine Besylate (Norvasc) 5 mg PO DAILY [facility] Last Admin: 04/28/19 08:39 Dose: 5 mg Documented by: Aspirin (Aspirin) 81 mg PO HS [facility] Last Admin: 04/28/19 20:27 Dose: 81 mg Documented by: Atenolol (Tenormin) 25 mg PO DAILY [facility] Last Admin: 04/28/19 08:39 Dose: 25 mg Documented by: Atorvastatin Calcium (Lipitor) 10 mg PO HS [facility] Last Admin: 04/28/19 20:25 Dose: 10 mg Documented by: Bisacodyl (Dulcolax) 10 mg RECTAL DAILY PRN PRN Reason: Constipation Enoxaparin Sodium (Lovenox) 40 mg SQ DAILY [facility] Last Admin: 04/28/19 08:39 Dose: 40 mg Documented by: Hydromorphone HCl (Dilaudid) 0.125 mg IVP Q3HR PRN PRN Reason: Pain Scale 1 to 3 Hydromorphone HCl (Dilaudid) 0.25 mg IVP Q3HR PRN PRN Reason: Pain Scale 4 to 6 Hydromorphone HCl (Dilaudid) 0.5 mg IVP Q3HR PRN PRN Reason: Pain Scale 7 to 10 Last Admin: 04/27/19 17:03 Dose: 0.5 mg Documented by: Sodium Chloride (Saline 0.9%) 1,000 mls @ 65 mls/hr IV .[id number] [facility] Last Admin: 04/28/19 08:34 Dose: Not Given Documented by: Ceftriaxone Sodium 2 gm/ (Sodium Chloride) 50 mls @ 100 mls/hr IVPB Q24HR [facility] Last Admin: 04/28/19 08:33 Dose: 100 mls/hr Documented by: Sodium Chloride (Saline 0.9%) 1,000 mls @ 65 mls/hr IV .[id number] [facility] Last Admin: 04/28/19 21:50 Dose: 65 mls/hr Documented by: Magnesium Hydroxide (Milk Of Magnesia) 2,400 mg PO DAILY PRN PRN Reason: Constipation Naloxone HCl (Narcan) 0.2 mg IV Q2M PRN PRN Reason: Opioid Reversal Naloxone HCl (Narcan) 0.2 mg IV Q2M PRN PRN Reason: Opioid Reversal Ondansetron HCl (Zofran) 4 mg IVP Q8HR PRN PRN Reason: Nausea And Vomiting Senna/Docusate Sodium (Senokot-S) 2 each PO [facility] Last Admin: 04/28/19 20:25 Dose: 2 each Documented by: Sodium Biphosphate/Sodium Phosphate (Fleet Adult) 133 ml RECTAL DAILY PRN PRN Reason: Constipation Physical examination: VITAL SIGNS: 98.4, 74, 12, 169 over 72, and 6% room air GENERAL: Sitting in bed, not in distress. EYES: Pupils equal. Conjunctiva normal. HEENT: External appearance of nose and ears normal, oral cavity grossly normal. NECK: JVD not raised; masses not palpable. HEART: First and second heart sounds are normal; no edema. LUNGS: Respiratory rate normal; decreased breath sounds. ABDOMEN: Soft, nontender, liver spleen not palpable, no masses palpable. PSYCH: Alert and oriented x3; mood and affect normal. MUSCULOSKELETAL: Evidence of significant OA in the hands. Dressing over the left knee INVESTIGATIONS, reviewed in the clinical context: White count 14.1 hemoglobin 9.8 platelets of 13 Left knee culture growing gram-negative bacilli Previous testing White count 15.9 hemoglobin 10.6 platelets 694 progression for bun 17 creatinine 0.73 AST 63 ALT 56 alk phos 178 C-reactive protein 149 Sinobronchial fluid-RBC 10,700, nucleated cells 51,000, son over crystals none Venous Doppler-negative for DVT and a left-sided popliteal fossa cyst on April 21 Synovitis fluid culture from April 23 growing-E. coli Assessment: -Left knee septic arthritis, status post I&D on 04/27 -Mild hepatitis suspect from infection -GERD -Hyperlipidemia -Essential hypertension -Primary osteoarthritis -Chronic gait dysfunction uses a walker -Left knee popliteal cyst, asymptomatic Plan: Patient is status post I&D of left knee. Continue with antibiotics that include IV ceftriaxone. Continue current medication treatment plan. Follow with Dr. Raines. Thank you Dr. Plata
--- NOTE | 2019-04-28 23:38 | P.PN ---
Progress Note - Text Progress Note Date: 04/27/19 - Chief Complaint Left knee swollen - History of Present Illness Consultation: This is a very pleasant 78-year-old patient of Dr. Medhat Richardson. Chronic stable medical conditions include GERD, hypertension, hyperlipidemia, primary osteoarthritis, macular degeneration. Had a baseline uses a walker. Patient just went on a group trip to [place] and returned on April 03. Patient subsequently developed pain swelling of the left knee with progressively gotten worse. Also fever and chills. When Dr. Tovar [facility] on April 05. Was given a diagnosis of acute bursitis. Was given antibiotics, local ice pack and told to follow a Dr. Plata. She wanted Dr. Plata's office 2 days ago. In the left knee was drained. I'm not sure this was the bursa or the knee joint. Fluid was positive for E. coli. Patient had been having fever or chills at home. Tired rundown body aches. She was sent in to get admitted for the same. She did have an ultrasound in the ER that showed a popliteal cyst. Negative for DVT. Patient denies any insect bites. No diarrhea. No pretibial skin. No respiratory symptoms. No headaches no dizziness. No other involvement of the joint. Admitted with septic arthritis of the left knee Today-status post I&D of the left knee. Some pain present. No nausea vomiting. No fever. On antibiotics. Current medications are reviewed from today's electronic records Physical examination: VITAL SIGNS: 98.7, 73, 14, 148/73, 93% GENERAL: Laying in bed, but anxious EYES: Pupils equal. Conjunctiva normal. HEENT: External appearance of nose and ears normal, oral cavity grossly normal. NECK: JVD not raised; masses not palpable. HEART: First and second heart sounds are normal; no edema. LUNGS: Respiratory rate normal; decreased breath sounds. ABDOMEN: Soft, nontender, liver spleen not palpable, no masses palpable. PSYCH: Alert and oriented x3; mood and affect normal. NEUROLOGICAL: Cranial nerves grossly intact; no facial asymmetry, power and sensation grossly intact. LYMPHATICS: No lymph nodes palpable in the axilla and neck MUSCULOSKELETAL: Evidence of significant OA in the hands. Dressing over the left knee INVESTIGATIONS, reviewed in the clinical context: Wound culture pending White count 15.9 hemoglobin 10.6 platelets 694 progression for bun 17 creatinine 0.73 AST 63 ALT 56 alk phos 178 C-reactive protein 149 Sinobronchial fluid-RBC 10,700, nucleated cells 51,000, son over crystals none Venous Doppler-negative for DVT and a left-sided popliteal fossa cyst on April 21 Synovitis fluid culture from April 23 growing-E. coli Assessment: -Acute septic arthritis of the left knee, status post I&D done today on 04/27/2019 -Mild hepatitis suspect from infection -GERD -Hyperlipidemia -Essential hypertension -Primary osteoarthritis -Chronic gait dysfunction uses a walker -Left knee popliteal cyst, asymptomatic Plan: Continue current medication treatment plan including IV antibiotics. Await culture results. Care was discussed with the patient. Thank you Dr. Plata
[2019-04-29] MEDS: SODIUM CHLORIDE 0.9% 1,000 ML IV SCH ×3 (01:15→13:58)
[2019-04-29] MEDS: HYDROcodone/APAP 5-325MG 1 EACH TAB PO PRN ×4 (01:48→19:00)
[2019-04-29] MEDS: HYDROmorphone 0.5 MG/0.5 ML SYRINGE IVP PRN (01:49)
[2019-04-29] MEDS: ATENOLOL 25 MG TAB PO SCH (07:55)
[2019-04-29] MEDS: amLODIPine 5 MG TAB PO SCH (07:55)
[2019-04-29] MEDS: ENOXAPARIN 40 MG/0.4 ML SYRINGE SQ SCH (07:55)
--- NOTE | 2019-04-29 09:55 | P.PN ---
Subjective Progress Note Date: 04/29/19 This patient is a 78-year-old female with past medical history of hypertension, hyperlipidemia, and breast cancer who was admitted to [facility] 04/27/19 for infection of the left knee. She had a left knee aspiration performed as an outpatient on by Dr. Terell Plata, and 20 mL of cloudy fluid was obtained. The fluid was sent for fluid analysis and culture and was positive for E. coli. Patient underwent an arthroscopy of the left knee with irrigation and debridement on 04/27/[address] Terell Plata. Today's postoperative day #2. The patient is examined bedside today. She was recently with physical therapy, had minimal issues ambulating with walker. She describes continued pain in the left knee, although it is improved since yesterday. She is tolerating her diet well. She had a bowel movement this morning. She complains of itching bumps on her back, which Dr. Contreras she has ordered topical cream for, per patient. She denies shortness of breath or trouble breathing. She states she overall feels well. She denies chest pain, shortness breath, nausea, vomiting, fevers, chills. Vital signs stable. Objective - Vital Signs Vital signs: Vital Signs Temp 98.2 F 04/29/19 07:00 Pulse 80 04/29/19 07:00 Resp 12 04/29/19 07:00 BP 172/76 04/29/19 07:00 Pulse Ox 94 L 04/29/19 07:00 Intake & Output 04/28/19 04/29/19 04/29/19 18:59 06:59 18:59 Intake Total 590 Balance 590 Intake: Oral 590 Other: Voiding Method Bedside Commode Bedside Commode Bedpan # Voids 2 2 - Exam On examination, the patient is sitting up in bed in no apparent distress. She is alert and oriented 3. On inspection of the left lower extremity, there is an Jae wrap in place of the knee and lower leg. Dressing is changed, and revea ls to benign incisions of the anterior knee. There is no drainage. Patient has good range of motion of her left ankle and foot. Dorsalis pedis pulse palpable, the left lower extremity is warm and well-perfused. Motor and sensory function are intact. Calves are soft and nontender to palpation bilaterally. Vital signs stable. - Labs CBC & Chem 7: 04/28/19 06:36 04/26/19 15:14 Labs: Microbiology - Last 24 Hours (Table) 04/27/19 08:51 Blood Culture - Preliminary Blood No Growth after 24 hours 04/27/19 09:08 Blood Culture - Preliminary Blood No Growth after 24 hours 04/27/19 14:39 Gram Stain - Preliminary Knee - Left Wound Culture - Preliminary Gram Neg Bacilli Assessment and Plan Assessment: Left knee septic arthritis status-post arthroscopic irrigation and debridement on 04/27/[address] Terell Plata. Post-operative day #2. Plan: - Weight-bearing as tolerated on the operative leg, with walker. - Ice and elevate the knee for pain and swelling control. - Physical therapy for gait and balance training. - Continue pain management. - DVT prophylaxis per internal medicine. - Antibiotics per Dr. Raines and infectious disease team. - Anticipate discharge to rehab vs. home possibly on Tuesday, pending clearance from internal medicine and infectious disease. Patient discussed with Dr. Plata.
[2019-04-29] MEDS ORDERED: CALAMINE/ZINC OXIDE LOTION 177 ML BTL TOPICAL PRN (10:46)
[2019-04-29] MEDS: diphenhydrAMINE 25 MG CAP PO PRN (11:51)
[2019-04-29] MEDS: FAMOTIDINE 20 MG TAB PO SCH (11:51)
--- NOTE | 2019-04-29 15:59 | P.PN ---
Progress Note - Text Progress Note Date: 04/29/19 - Chief Complaint Left knee swollen Consultation: This is a very pleasant 78-year-old patient of Dr. Medhat Richardson. Chronic stable medical conditions include GERD, hypertension, hyperlipidemia, primary osteoarthritis, macular degeneration. Had a baseline uses a walker. Patient just went on a group trip to [place] and returned on April 03. Patient subsequently developed pain swelling of the left knee with progressively gotten worse. Also fever and chills. When Dr. Tovar [facility] on April 05. Was given a diagnosis of acute bursitis. Was given antibiotics, local ice pack and told to follow a Dr. Plata. She wanted Dr. Plata's office 2 days ago. In the left knee was drained. I'm not sure this was the bursa or the knee joint. Fluid was positive for E. coli. Patient had been having fever or chills at home. Tired rundown body aches. She was sent in to get admitted for the same. She did have an ultrasound in the ER that showed a popliteal cyst. Negative for DVT. Patient denies any insect bites. No diarrhea. No pretibial skin. No respiratory symptoms. No headaches no dizziness. No other involvement of the joint. Admitted with septic arthritis of the left knee. Status post I&D of the left knee. Today-sitting upon a chair. No fever no chills. Overall feels better. Did tolerate her diet. Did develop a rash in the back. Given Benadryl, Pepcid, calamine lotion. Review of systems: Was done for constitutional, cardiovascular, GI, pulmonary. relevant finding as above Active Medications Hydrocodone Bitart/Acetaminophen ([place] 5-325) 1 each PO Q6HR PRN PRN Reason: Pain Scale 1 to 5 Hydrocodone Bitart/Acetaminophen ([place] 5-325) 2 each PO Q6HR PRN PRN Reason: Pain Scale 6 to 10 Last Admin: 04/29/19 13:06 Dose: 2 each Documented by: Amlodipine Besylate (Norvasc) 5 mg PO DAILY [facility] Last Admin: 04/29/19 07:55 Dose: 5 mg Documented by: Aspirin (Aspirin) 81 mg PO HS [facility] Last Admin: 04/28/19 20:27 Dose: 81 mg Documented by: Atenolol (Tenormin) 25 mg PO DAILY [facility] Last Admin: 04/29/19 07:55 Dose: 25 mg Documented by: Atorvastatin Calcium (Lipitor) 10 mg PO HS [facility] Last Admin: 04/28/19 20:25 Dose: 10 mg Documented by: Bisacodyl (Dulcolax) 10 mg RECTAL DAILY PRN PRN Reason: Constipation Calamine (Calamine Lotion) 1 applic TOPICAL BID PRN PRN Reason: Skin Irritation Diphenhydramine HCl (Benadryl) 25 mg PO QID PRN PRN Reason: Itching Last Admin: 04/29/19 11:51 Dose: 25 mg Documented by: Enoxaparin Sodium (Lovenox) 40 mg SQ DAILY [facility] Last Admin: 04/29/19 07:55 Dose: 40 mg Documented by: Famotidine (Pepcid) 20 mg PO DAILY [facility] Last Admin: 04/29/19 11:51 Dose: 20 mg Documented by: Hydromorphone HCl (Dilaudid) 0.125 mg IVP Q3HR PRN PRN Reason: Pain Scale 1 to 3 Hydromorphone HCl (Dilaudid) 0.25 mg IVP Q3HR PRN PRN Reason: Pain Scale 4 to 6 Hydromorphone HCl (Dilaudid) 0.5 mg IVP Q3HR PRN PRN Reason: Pain Scale 7 to 10 Last Admin: 04/29/19 01:49 Dose: 0.5 mg Documented by: Sodium Chloride (Saline 0.9%) 1,000 mls @ 65 mls/hr IV .[id number] [facility] Last Admin: 04/29/19 13:58 Dose: Not Given Documented by: Ceftriaxone Sodium 2 gm/ (Sodium Chloride) 50 mls @ 100 mls/hr IVPB Q24HR [facility] Last Admin: 04/29/19 07:56 Dose: 100 mls/hr Documented by: Sodium Chloride (Saline 0.9%) 1,000 mls @ 65 mls/hr IV .[id number] [facility] Last Admin: 04/29/19 11:51 Dose: 65 mls/hr Documented by: Magnesium Hydroxide (Milk Of Magnesia) 2,400 mg PO DAILY PRN PRN Reason: Constipation Naloxone HCl (Narcan) 0.2 mg IV Q2M PRN PRN Reason: Opioid Reversal Naloxone HCl (Narcan) 0.2 mg IV Q2M PRN PRN Reason: Opioid Reversal Ondansetron HCl (Zofran) 4 mg IVP Q8HR PRN PRN Reason: Nausea And Vomiting Senna/Docusate Sodium (Senokot-S) 2 each PO HS [facility] Last Admin: 04/28/19 20:25 Dose: 2 each Documented by: Sodium Biphosphate/Sodium Phosphate (Fleet Adult) 133 ml RECTAL DAILY PRN PRN Reason: Constipation Physical examination: VITAL SIGNS: 98.5, 66, 12, 150/66, 92% room air GENERAL: Sitting upon a chair, comfortable EYES: Pupils equal. Conjunctiva normal. HEENT: External appearance of nose and ears normal, oral cavity grossly normal. NECK: JVD not raised; masses not palpable. HEART: First and second heart sounds are normal; no edema. LUNGS: Respiratory rate normal; decreased breath sounds. ABDOMEN: Soft, nontender, liver spleen not palpable, no masses palpable. PSYCH: Alert and oriented x3; mood and affect normal. MUSCULOSKELETAL: Evidence of significant OA in the hands. Dressing over the left knee INVESTIGATIONS, reviewed in the clinical context: Wound culture-E. coli White count 14.1 hemoglobin 9.8 Previous testing White count 15.9 hemoglobin 10.6 platelets 694 progression for bun 17 creatinine 0.73 AST 63 ALT 56 alk phos 178 C-reactive protein 149 Sinobronchial fluid-RBC 10,700, nucleated cells 51,000, son over crystals none Venous Doppler-negative for DVT and a left-sided popliteal fossa cyst on April 21 Synovitis fluid culture from April 23 growing-E. coli Assessment: -Acute septic arthritis of the left knee, status post I&D done on 04/27/2019 -Mild hepatitis suspect from infection -GERD -Hyperlipidemia -Essential hypertension -Primary osteoarthritis -Chronic gait dysfunction uses a walker -Left knee popliteal cyst, asymptomatic Plan: Care was discussed with the patient. On IV ceftriaxone. He did Benadryl, Pepcid and calamine lotion. DC antibiotics per Dr. Raines. DC IV fluids. Thank you Dr. Plata
[2019-04-29] MEDS: ASPIRIN 81 MG PO SCH (21:27)
[2019-04-29] MEDS: ATORVASTATIN 10 MG TAB PO SCH (21:27)
[2019-04-29] MEDS: SENNOSIDES-DOCUSATE SODIUM 1 EACH TAB PO SCH (21:28)
[2019-04-30] MEDS: HYDROcodone/APAP 5-325MG 1 EACH TAB PO PRN ×4 (01:35→20:44)
[2019-04-30 06:39] LABS: Basophils # (A) 0.3 k/uL (0-0.2); Basophils % (A) 2 %; Eosinophils # (A) 0.4 k/uL (0-0.7); Eosinophils % (A) 3 %; HCT 31.8 % (34.0-46.0); HGB 10.3 gm/dL (11.4-16.0); Hypochromasia Slight; Lymphocytes # (A) 3.3 k/uL (1.0-4.8); Lymphocytes % (A) 22 %; MCH 30.6 pg (25.0-35.0); MCHC 32.4 g/dL (31.0-37.0); MCV 94.3 fL (80.0-100.0); Mean Platelet Volume 7.9; Monocytes # (A) 1.2 k/uL (0-1.0); Monocytes % (A) 8 %; Neutrophils # (A) 9.9 k/uL (1.3-7.7); Neutrophils % (A) 65 %; Platelet Count 795 k/uL (150-450); RBC 3.37 m/uL (3.80-5.40); RDW 13.9 % (11.5-15.5); WBC 15.3 k/uL (3.8-10.6)
[2019-04-30] MEDS: ENOXAPARIN 40 MG/0.4 ML SYRINGE SQ SCH (08:13)
[2019-04-30] MEDS: FAMOTIDINE 20 MG TAB PO SCH (08:13)
[2019-04-30] MEDS: ATENOLOL 25 MG TAB PO SCH (08:13)
[2019-04-30] MEDS: amLODIPine 5 MG TAB PO SCH (08:13)
--- NOTE | 2019-04-30 09:18 | P.PN ---
Subjective Progress Note Date: 04/30/19 This is a 78-year-old female who is status post arthroscopy of the right knee with arthroscopic irrigation and debridement for septic arthritis and partial medial meniscectomy. This is postoperative day #3 and patient is seen and evaluated at bedside with Dr. Terlel Plata. Patient states that the left knee is sore. Patient denies any new symptoms today. Patient denies any fever/chills, numbness, weakness, tingling, abdominal pain, shortness of breath or chest pain. Objective - Vital Signs Vital signs: Vital Signs Temp 98.7 F 04/30/19 07:00 Pulse 88 04/30/19 07:00 Resp 14 04/30/19 07:00 BP 161/72 04/30/19 07:00 Pulse Ox 95 04/30/19 07:00 Intake & Output 04/29/19 04/30/19 04/30/19 18:59 06:59 18:59 Intake Total 390 296 Balance 390 296 Intake: Intake, IV Titration 390 Amount Sodium Chloride 0.9% 1, 390 000 ml @ 65 mls/hr IV . [id number] [facility] Rx#:[id number] Oral 296 Other: Voiding Method Bedside Commode Bedside Commode # Voids 3 1 - Exam Vital signs are stable. Patient is in no acute distress and is alert and oriented 3. Calf is soft and nontender to palpation. Sutures are clean, dry and intact. There is mild swelling of the left knee. No erythema, ecchymosis or drainage. Patient has full foot and ankle motion without pain or difficulty. Neurovascular status and circulatory status are intact. - Labs CBC & Chem 7: 04/30/19 05:40 04/26/19 15:14 Labs: Abnormal Lab Results - Last 24 Hours (Table) 04/30/19 Range/Units 05:40 WBC 15.3 H (3.8-10.6) k/uL RBC 3.37 L (3.80-5.40) m/uL Hgb 10.3 L (11.4-16.0) gm/dL Hct 31.8 L (34.0-46.0) % Plt Count 795 H (150-450) k/uL Neutrophils # 9.9 H (1.3-7.7) k/uL Monocytes # 1.2 H (0-1.0) k/uL Basophils # 0.3 H (0-0.2) k/uL Microbiology - Last 24 Hours (Table) 04/27/19 14:39 Gram Stain - Final Knee - Left Wound Culture - Final Escherichia coli 04/27/19 14:39 Anaerobic Culture - Preliminary Knee - Left 04/27/19 08:51 Blood Culture - Preliminary Blood No Growth after 48 hours 04/27/19 09:08 Blood Culture - Preliminary Blood No Growth after 48 hours Assessment and Plan (1) Infection of left knee Current Visit: No Status: Acute Code(s): M00.9 - PYOGENIC ARTHRITIS, UNSPECIFIED SNOMED Code(s): 108940087 (2) Left knee pain Current Visit: No Status: Acute Code(s): M25.562 - PAIN IN LEFT KNEE SNOMED Code(s): 04126830 Plan: 1. Continue IV antibiotics per infectious disease. Patient is awaiting PICC line placement. 2. Continue routine postoperative care and pain control. Recommend that patient work on range of motion of the left knee. Weightbearing as tolerated to the left lower extremity. 3. Rest, ice and elevate the left lower extremity. Daily dressing changes. 4. Cultures are positive for E. coli. 5. Appreciate input from internal medicine. 6. Planning for discharge to [facility] for IV antibiotics in the next 24-48 hours.
[2019-04-30 12:10] LABS: INR 1.5 (<1.2)
[2019-04-30] MEDS ORDERED: LIDOCAINE 1% INJ 10MG/ML (20 ML MDV) SQ ONE (12:57)
--- NOTE | 2019-04-30 14:31 | IR ---
EXAMINATION TYPE: IR cvc insert >=5 years DATE OF EXAM: 04/30/2019 COMPARISON: NONE CLINICAL HISTORY: Infection Needs long-term intravenous access for antibiotics. PROCEDURE: After informed consent, the skin overlying the right basilic vein was localized with ultrasound and n oted to be compressible and patent. An ultrasound image was obtained and submitted on the patient's chart. The overlying skin was prepped and draped and Lidocaine was used for local anesthesia. A ski n eshter was made with a scalpel. Access was gained to the vein under ultrasound guidance with a 21 ga uge needle and a 0.018 inch wire was advanced. Access site was dilated with Peel-Away sheath and cat heter tailored to the appropriate length and advanced such that the distal tip is at the cavoatrial j unction. Spot image was obtained verifying placement. Catheter was fixed to the skin and a sterile dressing was placed following hemostasis. Catheter was aspirated and flushed with saline. Patient w as discharged in stable condition without complication.Maximal barrier technique is utilized. Ultras ound image is documented on the chart. Ultrasound used with sterile technique. Fluoro time and fluoroscopic images submitted to document procedure: 0.3 minutes fluoroscopy time, 81 intraoperative images IMPRESSION: STATUS POST ULTRASOUND AND FLUOROSCOPIC GUIDED PICC LINE PLACEMENT, READY FOR USE. THIS PROCEDURE WAS PERFORMED BY THE UNDERSIGNED.
[2019-04-30] MEDS: HYDROmorphone 0.5 MG/0.5 ML SYRINGE IVP PRN (15:44)
--- NOTE | 2019-04-30 17:35 | P.PN ---
Progress Note - Text Progress Note Date: 04/30/19 - Chief Complaint Left knee swollen Consultation: This is a very pleasant 78-year-old patient of Dr. Medhat Richardson. Chronic stable medical conditions include GERD, hypertension, hyperlipidemia, primary osteoarthritis, macular degeneration. Had a baseline uses a walker. Patient just went on a group trip to [place] and returned on April 03. Patient subsequently developed pain swelling of the left knee with progressively gotten worse. Also fever and chills. When Dr. Tovar [facility] on April 05. Was given a diagnosis of acute bursitis. Was given antibiotics, local ice pack and told to follow a Dr. Plata. She wanted Dr. Plata's office 2 days ago. In the left knee was drained. I'm not sure this was the bursa or the knee joint. Fluid was positive for E. coli. Patient had been having fever or chills at home. Tired rundown body aches. She was sent in to get admitted for the same. She did have an ultrasound in the ER that showed a popliteal cyst. Negative for DVT. Patient denies any insect bites. No diarrhea. No pretibial skin. No respiratory symptoms. No headaches no dizziness. No other involvement of the joint. Admitted with septic arthritis of the left knee. Status post I&D of the left knee. Today-sitting UP in the bed. No cough. No new issues. No fever no chills. Review of systems: Was done for constitutional, cardiovascular, GI, pulmonary. relevant finding as above Active Medications Hydrocodone Bitart/Acetaminophen ([place] 5-325) 1 each PO Q6HR PRN PRN Reason: Pain Scale 1 to 5 Hydrocodone Bitart/Acetaminophen ([place] 5-325) 2 each PO Q6HR PRN PRN Reason: Pain Scale 6 to 10 Last Admin: 04/30/19 13:39 Dose: 2 each Documented by: Amlodipine Besylate (Norvasc) 5 mg PO DAILY [facility] Last Admin: 04/30/19 08:13 Dose: 5 mg Documented by: Aspirin (Aspirin) 81 mg PO [facility] Last Admin: 04/29/19 21:27 Dose: 81 mg Documented by: Atenolol (Tenormin) 25 mg PO DAILY [facility] Last Admin: 04/30/19 08:13 Dose: 25 mg Documented by: Atorvastatin Calcium (Lipitor) 10 mg PO [facility] Last Admin: 04/29/19 21:27 Dose: 10 mg Documented by: Bisacodyl (Dulcolax) 10 mg RECTAL DAILY PRN PRN Reason: Constipation Calamine (Calamine Lotion) 1 applic TOPICAL BID PRN PRN Reason: Skin Irritation Last Admin: 04/29/19 19:00 Dose: 1 applic Documented by: Diphenhydramine HCl (Benadryl) 25 mg PO QID PRN PRN Reason: Itching Last Admin: 04/29/19 11:51 Dose: 25 mg Documented by: Enoxaparin Sodium (Lovenox) 40 mg SQ DAILY [facility] Last Admin: 04/30/19 08:13 Dose: 40 mg Documented by: Famotidine (Pepcid) 20 mg PO DAILY [facility] Last Admin: 04/30/19 08:13 Dose: 20 mg Documented by: Hydromorphone HCl (Dilaudid) 0.125 mg IVP Q3HR PRN PRN Reason: Pain Scale 1 to 3 Hydromorphone HCl (Dilaudid) 0.25 mg IVP Q3HR PRN PRN Reason: Pain Scale 4 to 6 Hydromorphone HCl (Dilaudid) 0.5 mg IVP Q3HR PRN PRN Reason: Pain Scale 7 to 10 Last Admin: 04/30/19 15:44 Dose: 0.5 mg Documented by: Ceftriaxone Sodium 2 gm/ (Sodium Chloride) 50 mls @ 100 mls/hr IVPB Q24HR [facility] Last Admin: 04/30/19 08:13 Dose: 100 mls/hr Documented by: Magnesium Hydroxide (Milk Of Magnesia) 2,400 mg PO DAILY PRN PRN Reason: Constipation Naloxone HCl (Narcan) 0.2 mg IV Q2M PRN PRN Reason: Opioid Reversal Naloxone HCl (Narcan) 0.2 mg IV Q2M PRN PRN Reason: Opioid Reversal Ondansetron HCl (Zofran) 4 mg IVP Q8HR PRN PRN Reason: Nausea And Vomiting Senna/Docusate Sodium (Senokot-S) 2 each PO [facility] Last Admin: 04/29/19 21:28 Dose: Not Given Documented by: Sodium Biphosphate/Sodium Phosphate (Fleet Adult) 133 ml RECTAL DAILY PRN PRN Reason: Constipation Sodium Chloride (Saline Flush) 10 ml IV Q4HR PRN PRN Reason: PICC Line Sodium Chloride (Saline Flush) 10 ml IV WEEKLY GEOFF Sodium Chloride (Saline Flush) 20 ml IV Q4HR PRN PRN Reason: PICC Line Physical examination: VITAL SIGNS: 98.4, 78, 16, 160/78, 98% room air GENERAL: Sitting up in the bed, comfortable EYES: Pupils equal. Conjunctiva normal. HEENT: External appearance of nose and ears normal, oral cavity grossly normal. NECK: JVD not raised; masses not palpable. HEART: First and second heart sounds are normal; no edema. LUNGS: Respiratory rate normal; decreased breath sounds. ABDOMEN: Soft, nontender, liver spleen not palpable, no masses palpable. PSYCH: Alert and oriented x3; mood and affect normal. MUSCULOSKELETAL: Evidence of significant OA in the hands. Dressing over the left knee INVESTIGATIONS, reviewed in the clinical context: White count 15.3 hemoglobin 10.3 Wound culture-E. coli White count 14.1 hemoglobin 9.8 Previous testing White count 15.9 hemoglobin 10.6 platelets 694 progression for bun 17 creatinine 0.73 AST 63 ALT 56 alk phos 178 C-reactive protein 149 Sinobronchial fluid-RBC 10,700, nucleated cells 51,000, son over crystals none Venous Doppler-negative for DVT and a left-sided popliteal fossa cyst on April 21 Synovitis fluid culture from April 23 growing-E. coli Assessment: -Acute septic arthritis of the left knee, status post I&D done on 04/27/2019 -Mild hepatitis suspect from infection -GERD -Hyperlipidemia -Essential hypertension -Primary osteoarthritis -Chronic gait dysfunction uses a walker -Left knee popliteal cyst, asymptomatic Plan: Continue with IV ceftriaxone. Patient will probably need a PICC line. Other medications to continue. Repeat labs in the morning. Care was discussed with the patient. Thank you Dr. Plata
[2019-04-30 20:15] VITALS: RESP 18
[2019-04-30] MEDS: ATORVASTATIN 10 MG TAB PO SCH (20:18)
[2019-04-30] MEDS: ASPIRIN 81 MG PO SCH (20:18)
[2019-04-30] MEDS: SENNOSIDES-DOCUSATE SODIUM 1 EACH TAB PO SCH (20:18)
[2019-04-30] MEDS: diphenhydrAMINE 25 MG CAP PO PRN (20:21)
--- NOTE | 2019-04-30 23:32 | P.PN ---
Subjective Progress Note Date: 04/30/19 This is a 78-year-old female gives history of recent travel to [place]. Patient states that when she was getting onto the plane to leave for age and she twisted her left knee and had pain during her entire trip. She did do approximate 5 miles of walking every day. She returned on April 03. Pain continued to worsen and she went to [facility] was diagnosed with bursitis. Physical therapy was also arranged. She states she had one day where she had significant body aches and fever to 101 and chills. Then she noted that her knee suddenly swelled worse than before and on April 21, patient came into [facility] emergency center for evaluation. X-ray showed joint effusion, mild arthritic changes. Ultrasound showed a popliteal cyst and negative for DVT. Patient was instructed to follow-up with orthopedics. Patient was seen in the office on April [address] Plata and he performed drainage of 20 mL of cloudy fluid. On April 23, patient had white count of 16.9, sed rate 92, CRP 23. Synovial fluid was cloudy yellow and analysis showed RBCs of 10,700, nucleated cells 51,800, polynuclear 98, mononuclear to. No crystals identified. [facility] and report is not currently available. She states the day she had MRI, she was having significant fever and chills. Patient was then admitted on April [address] [facility] floor and started on IV Rocephin. Repeat lab work revealed white count of 15.9, sed rate 86, CRP 149, blood sugar 187, AST 63, ALT 56, alkaline phosphatase 178. Urinalysis negative for infection. Patient is scheduled for washout left knee joint this afternoon. Synovial fluid culture from April 23 positive for E. coli. Patient has a significant past medical history of pancreatic cancer with resection of two thirds of the pancreas, left breast cancer with mastectomy. Patient does have a history of a left tibial fracture in December 2018 which she states completely healed and she was doing well with ambulation prior to injury in March. 04/30/2019 the patient is having some improvement of her status. The left knee is still painful but she has been able to have some limited range of motion. Pain is still problematic. Team is working at her discharge plan Objective - Vital Signs Vital signs: Vital Signs Temp 98.8 F 04/30/19 19:00 Pulse 73 04/30/19 19:00 Resp 18 04/30/19 19:00 BP 172/76 04/30/19 19:00 Pulse Ox 94 L 04/30/19 19:00 Intake & Output 04/30/19 04/30/19 05/01/19 06:59 18:59 06:59 Intake Total 671 Balance 671 Intake: Intake, IV Titration 375 Amount Sodium Chloride 0.9% 1, 325 000 ml @ 65 mls/hr IV . [id number] GOEFF Rx#:[id number] cefTRIAXone 2 gm In 50 Sodium Chloride 0.9% 50 ml @ 100 mls/hr IVPB Q24HR GEOFF Rx#:[id number] Oral 296 Other: Voiding Method Bedside Commode Toilet # Voids 1 3 2 - Exam Gen: This is a 78-year-old female. Patient is resting in bed and appears to be comfortable and in no acute distress. HEENT: Head is atraumatic, normocephalic. Pupils equal, round. Sclerae is anicteric. Oral mucous membranes are moist. No thrush noted. NECK: Supple. No JVD. No lymphadenopathy. No thyromegaly. LUNGS: Clear to auscultation. No wheezes or rhonchi. No intercostal retractions. HEART: Regular rate and rhythm. No murmur. ABDOMEN: Soft. Bowel sounds are present. No masses. No tenderness. EXTREMITIES: No pedal edema. No calf tenderness. Effusion noted to the left knee with warmth to touch. No open wounds or drainage. NEUROLOGICAL: Patient is awake, alert and oriented x3. - Labs CBC & Chem 7: 04/30/19 05:40 04/26/19 15:14 Labs: Abnormal Lab Results - Last 24 Hours (Table) 04/30/19 04/30/19 Range/Units 05:40 06:38 WBC 15.3 H (3.8-10.6) k/uL RBC 3.37 L (3.80-5.40) m/uL Hgb 10.3 L (11.4-16.0) gm/dL Hct 31.8 L (34.0-46.0) % Plt Count 795 H (150-450) k/uL Neutrophils # 9.9 H (1.3-7.7) k/uL Monocytes # 1.2 H (0-1.0) k/uL Basophils # 0.3 H (0-0.2) k/uL PT 15.0 H (9.0-12.0) sec INR 1.5 H (<1.2) Microbiology - Last 24 Hours (Table) 04/27/19 08:51 Blood Culture - Preliminary Blood No Growth after 72 hours 04/27/19 09:08 Blood Culture - Preliminary Blood No Growth after 72 hours Laboratory Results WBC 15.3 k/uL (3.8-10.6) H 04/30/19 05:40 RBC 3.37 m/uL (3.80-5.40) L 04/30/19 05:40 Hgb 10.3 gm/dL (11.4-16.0) L 04/30/19 05:40 Hct 31.8 % (34.0-46.0) L 04/30/19 05:40 MCV 94.3 fL (80.0-100.0) 04/30/19 05:40 MCH 30.6 pg (25.0-35.0) 04/30/19 05:40 MCHC 32.4 g/dL (31.0-37.0) 04/30/19 05:40 RDW 13.9 % (11.5-15.5) 04/30/19 05:40 Plt Count 795 k/uL (150-450) H 04/30/19 05:40 Neutrophils % 65 % 04/30/19 05:40 Lymphocytes % 22 % 04/30/19 05:40 Monocytes % 8 % 04/30/19 05:40 Eosinophils % 3 % 04/30/19 05:40 Basophils % 2 % 04/30/19 05:40 Neutrophils # 9.9 k/uL (1.3-7.7) H 04/30/19 05:40 Lymphocytes # 3.3 k/uL (1.0-4.8) 04/30/19 05:40 Monocytes # 1.2 k/uL (0-1.0) H 04/30/19 05:40 Eosinophils # 0.4 k/uL (0-0.7) 04/30/19 05:40 Basophils # 0.3 k/uL (0-0.2) H 04/30/19 05:40 Hypochromasia Slight 04/30/19 05:40 ESR 86 mm/hr (0-20) H 04/26/19 15:14 PT 15.0 sec (9.0-12.0) H 04/30/19 06:38 INR 1.5 (<1.2) H 04/30/19 06:38 Sodium 140 mmol/L (137-145) 04/26/19 15:14 Potassium 4.0 mmol/L (3.5-5.1) 04/26/19 15:14 Chloride 100 mmol/L (98-107) 04/26/19 15:14 Carbon Dioxide 31 mmol/L (22-30) H 04/26/19 15:14 Anion Gap 9 mmol/L 04/26/19 15:14 BUN 17 mg/dL (7-17) 04/26/19 15:14 Creatinine 0.73 mg/dL (0.52-1.04) 04/26/19 15:14 Est GFR (CKD-EPI)AfAm >90 (>60 ml/min/1.73 sqM) 04/26/19 15:14 Est GFR (CKD-EPI)NonAf 79 (>60 ml/min/1.73 sqM) 04/26/19 15:14 Glucose 187 mg/dL (74-99) H 04/26/19 15:14 Calcium 9.0 mg/dL (8.4-10.2) 04/26/19 15:14 Total Bilirubin 0.4 mg/dL (0.2-1.3) 04/26/19 15:14 AST 63 U/L (14-36) H 04/26/19 15:14 ALT 56 U/L (9-52) H 04/26/19 15:14 Alkaline Phosphatase 178 U/L (38-126) H 04/26/19 15:14 C-Reactive Protein 149.7 mg/L (<10.0) H 04/26/19 15:14 Total Protein 6.6 g/dL (6.3-8.2) 04/26/19 15:14 Albumin 3.1 g/dL (3.5-5.0) L 04/26/19 15:14 Urine Color Yellow 04/27/19 04:45 Urine Appearance Clear (Clear) 04/27/19 04:45 Urine pH 6.5 (5.0-8.0) 04/27/19 04:45 Ur Specific [place] 1.016 (1.001-1.035) 04/27/19 04:45 Urine Protein Trace (Negative) H 04/27/19 04:45 Urine Glucose (UA) Negative (Negative) 04/27/19 04:45 Urine Ketones Negative (Negative) 04/27/19 04:45 Urine Blood Negative (Negative) 04/27/19 04:45 Urine Nitrite Negative (Negative) 04/27/19 04:45 Urine Bilirubin Negative (Negative) 04/27/19 04:45 Urine Urobilinogen 4.0 mg/dL (<2.0) 04/27/19 04:45 Ur Leukocyte Esterase Negative (Negative) 04/27/19 04:45 Microbiology 04/27/19 08:51 Blood Blood Culture - Preliminary No Growth after 72 hours 04/27/19 09:08 Blood Blood Culture - Preliminary No Growth after 72 hours 04/27/19 14:39 Knee - Left Gram Stain - Final 04/27/19 14:39 Knee - Left Wound Culture - Final Escherichia coli 04/27/19 14:39 Knee - Left Anaerobic Culture - Preliminary 04/27/19 14:39 Knee - Left Fungal Culture - Preliminary Assessment and Plan (1) Septic joint of left knee joint Narrative/Plan: This pleasant 78-year-old woman is noted has just returned from her trip to [place]. She was very cautious about what she ate but certainly did not feel well some of the time because of the difficulties with the food and water. Upon coming home she was doing well until the onset of the severe pain to her knee. Outpatient aspiration showed evidence of E. coli.. Surgical arthroscopic lavage of the left knee shall be occurring today. We discussed the septic arthritis and that intravenous antibiotic therapy is most prudent. Her son and friend are present. Outpatient intravenous antibiotic therapy may be an option however if she is having great difficulties ambulation and since she lives alone may require short-term rehabilitation stay. She wants to go out of town for and then go to [place] where she myers. We discussed how difficult this she'll be in that short period of time. Going from [place] to [place] to complete her course of IV antibiotic therapy may be possible if she has a physician in [place] who could assume the care when she arrives there. There are home care agencies that are multi state and we'll be able to arrange that if she does have a local physician. Weightbearing status as per orthopedic surgery. At this time planning Rocephin which is a daily infusion. The patient is having significant pain and that is being addressed. The patient's baseline laboratories revealed markedly elevated sed rate and CRP that correlated well with the septic arthritis. E. coli has been isolated and will arrange for the outpatient antibiotic therapy she likely will go to rehab to increase her strength and will need to work with the discharge planners to utilize such as corn so that she may finish her treatment in [place] where she would like to go soon for the winter season. Current Visit: Yes Status: Acute Code(s): M00.9 - PYOGENIC ARTHRITIS, UNSPECIFIED SNOMED Code(s): 815246885
[2019-05-01] MEDS: HYDROcodone/APAP 5-325MG 1 EACH TAB PO PRN ×3 (04:19→15:41)
[2019-05-01 07:13] LABS: HCT 34.9 % (34.0-46.0); HGB 11.1 gm/dL (11.4-16.0); MCH 29.9 pg (25.0-35.0); MCHC 31.9 g/dL (31.0-37.0); MCV 93.8 fL (80.0-100.0); Mean Platelet Volume 7.9; Platelet Count 928 k/uL (150-450); RBC 3.72 m/uL (3.80-5.40); RDW 13.8 % (11.5-15.5); WBC 15.4 k/uL (3.8-10.6)
[2019-05-01 07:14] LABS: ALT 44 U/L (9-52); AST 36 U/L (14-36); African American GFR (CKD) >90 (>60 ml/min/1.73 sqM); Alkaline Phosphatase 127 U/L (38-126); Anion Gap 8 mmol/L; Blood Urea Nitrogen 13 mg/dL (7-17); Calcium 9.2 mg/dL (8.4-10.2); Carbon Dioxide 31 mmol/L (22-30); Chloride 100 mmol/L (98-107); Glucose 128 mg/dL (74-99); Non-African American GFR(CKD) 88 (>60 ml/min/1.73 sqM); Potassium 4.7 mmol/L (3.5-5.1); Sodium 139 mmol/L (137-145); Total Bilirubin 0.6 mg/dL (0.2-1.3); Total Protein 6.8 g/dL (6.3-8.2)
[2019-05-01 08:02] VITALS: BP 173/85; PULSE 81; TEMP 98.6
[2019-05-01] MEDS: ATENOLOL 25 MG TAB PO SCH (08:42)
[2019-05-01] MEDS: ENOXAPARIN 40 MG/0.4 ML SYRINGE SQ SCH (08:42)
[2019-05-01] MEDS: FAMOTIDINE 20 MG TAB PO SCH (08:42)
[2019-05-01] MEDS: amLODIPine 5 MG TAB PO SCH (08:42)
--- NOTE | 2019-05-01 10:47 | P.DS ---
Providers Date of admission: 04/26/19 12:29 Expected date of discharge: 05/01/19 Attending physician: Terell Plata Consults: 04/26/19 10:21 Consult Physician Routine Consulting Provider: Gabe Raines Consult Reason/Comments: left knee infection Do you want consulting provider notified?: Yes 04/26/19 10:22 Consult Physician Routine Consulting Provider: Brennen Contreras Consult Reason/Comments: medical clearance Do you want consulting provider notified?: Yes Primary care physician: Medhat Richardson - Discharge Diagnosis(es) (1) Infection of left knee Current Visit: No Status: Acute (2) Left knee pain Current Visit: No Status: Acute Hospital Course: This is a 78-year-old female who was initially seen as an outpatient at [facility] for left knee pain and swelling. Patient had a left knee aspiration performed as an outpatient on 04/23/[address] Terell Plata and 20 cc of cloudy fluid was obtained. Cultures came back positive for E. coli. Patient was then admitted to [facility] 04/26/2019 for septic arthritis of the left knee. After discussion and consideration patient elects to proceed with arthroscopic irrigation and debridement of the left knee. The patient is seen preoperatively by Dr. Plata and medically cleared for surgery by internal medicine. Patient underwent arthroscopy of the right knee with arthroscopic irrigation and debridement for septic arthritis, partial medial meniscectomy, chondroplasty of the medial femoral patellofemoral compartments, and partial synovectomy of the medial femoral, lateral femoral and patellofemoral compartments on 04/27/2019. The procedures performed without complication or sequelae. Patient is doing well postoperatively. Labs and vital signs are stable on day of discharge. Patient had a PICC line placed and antibiotics are being managed by infectious disease. On day of discharge, the patient's knee incisions are healing well. There is no erythema. There is no drainage noted at this time. There is minimal soft tissue swelling to the knee. Patient has full foot and ankle motion without difficulty or pain. Calf is soft and nontender to palpation. Neurovascular status to the left lower extremity is intact. Patient is discharged to rehab in good condition. Opioid start talking form is reviewed and signed at patient bedside. Please see med rec for accurate list of home medications. Plan - Discharge Summary Discharge Rx Participant: No New Discharge Prescriptions: New cefTRIAXone [Rocephin] 2 gm IVPB Q24HR #38 vial Aspirin 325 mg PO BID #28 tab HYDROcodone/APAP 5-325MG [[place] 5-325] 1 - 2 tab PO Q6HR PRN #56 tab PRN Reason: Pain No Action Rosuvastatin Calcium 5 mg PO HS amLODIPine [Norvasc] 5 mg PO DAILY Aspirin 81 mg PO HS Vit C/E/Zn/Coppr/Lutein/Zeaxan [Preservision Areds 2 Softgel] 1 cap PO BID Atenolol [Tenormin] 25 mg PO DAILY Discharge Medication List Aspirin 81 mg PO HS 04/26/19 [History] Atenolol [Tenormin] 25 mg PO DAILY 04/26/19 [History] Rosuvastatin Calcium 5 mg PO HS 04/26/19 [History] Vit C/E/Zn/Coppr/Lutein/Zeaxan [[place] 2 Softgel] 1 cap PO BID 04/26/19 [History] amLODIPine [Norvasc] 5 mg PO DAILY 04/26/19 [History] cefTRIAXone [Rocephin] 2 gm IVPB Q24HR #38 vial 04/30/19 [Rx] Aspirin 325 mg PO BID #28 tab 05/01/19 [Rx] HYDROcodone/APAP 5-325MG [[place] 5-325] 1 - 2 tab PO Q6HR PRN #56 tab 05/01/19 [Rx] Follow up Appointment(s)/Referral(s): Gabe Raines MD [STAFF PHYSICIAN] - 05/23/19 10:45 am Terell Plata DO [Doctor of Osteopathic Medicine] - 05/16/19 2:35 pm Ambulatory/Diagnostic Orders: Basic Metabolic Panel [LAB.AMB] Location: None Selected C Reactive Protein [LAB.AMB] Location: None Selected Complete Blood Count w/diff [LAB.AMB] Location: None Selected Erythrocyte Sedimentation Rate [LAB.AMB] Location: None Selected Activity/Diet/Wound Care/Special Instructions: Weightbearing as tolerated with a walker. Daily dressing changes. Recommend use of compression stockings daily for at least 2 weeks during the day to help prevent swelling and blood clots. May remove at night before sleeping. Please follow up with [facility] and call with any questions or concerns, . Discharge Disposition: TRANSFER TO SNF/ECF
--- NOTE | 2019-05-01 20:34 | P.PN ---
Subjective Progress Note Date: 05/01/19 This is a 78-year-old female gives history of recent travel to [place]. Patient states that when she was getting onto the plane to leave for age and she twisted her left knee and had pain during her entire trip. She did do approximate 5 miles of walking every day. She returned on April 03. Pain continued to worsen and she went to [facility] was diagnosed with bursitis. Physical therapy was also arranged. She states she had one day where she had significant body aches and fever to 101 and chills. Then she noted that her knee suddenly swelled worse than before and on April 21, patient came into [facility] emergency center for evaluation. X-ray showed joint effusion, mild arthritic changes. Ultrasound showed a popliteal cyst and negative for DVT. Patient was instructed to follow-up with orthopedics. Patient was seen in the office on April [address] Plata and he performed drainage of 20 mL of cloudy fluid. On April 23, patient had white count of 16.9, sed rate 92, CRP 23. Synovial fluid was cloudy yellow and analysis showed RBCs of 10,700, nucleated cells 51,800, polynuclear 98, mononuclear to. No crystals identified. [facility] and report is not currently available. She states the day she had MRI, she was having significant fever and chills. Patient was then admitted on April 26 to the [facility] floor and started on IV Rocephin. Repeat lab work revealed white count of 15.9, sed rate 86, CRP 149, blood sugar 187, AST 63, ALT 56, alkaline phosphatase 178. Urinalysis negative for infection. Patient is scheduled for washout left knee joint this afternoon. Synovial fluid culture from April 23 positive for E. coli. Patient has a significant past medical history of pancreatic cancer with resection of two thirds of the pancreas, left breast cancer with mastectomy. Patient does have a history of a left tibial fracture in December 2018 which she states completely healed and she was doing well with ambulation prior to injury in March. 04/30/2019 the patient is having some improvement of her status. The left knee is still painful but she has been able to have some limited range of motion. Pain is still problematic. Team is working at her discharge plan 05/01/2019 patient has had further improvement. Over still has significant pain to the left knee, great difficulties with ambulation. She is tolerating antibiotic therapy well without nausea or emesis or diarrhea. No rash or other new acute complaints. Objective - Vital Signs Vital signs: Vital Signs Temp 98.6 F 05/01/19 08:01 Pulse 81 05/01/19 08:01 Resp 18 05/01/19 08:01 BP 173/85 05/01/19 08:01 Pulse Ox 94 L 05/01/19 08:01 Intake & Output 05/01/19 05/01/19 05/02/19 06:59 18:59 06:59 Intake Total 50 Balance 50 Intake: Intake, IV Titration 50 Amount cefTRIAXone 2 gm In 50 Sodium Chloride 0.9% 50 ml @ 100 mls/hr IVPB Q24HR [facility] Rx#:[id number] Other: Voiding Method Toilet Toilet # Voids 1 - Exam Gen: This is a 78-year-old female. Patient is resting in bed and appears to be comfortable and in no acute distress. HEENT: Head is atraumatic, normocephalic. Pupils equal, round. Sclerae is anicteric. Oral mucous membranes are moist. No thrush noted. NECK: Supple. No JVD. No lymphadenopathy. No thyromegaly. LUNGS: Clear to auscultation. No wheezes or rhonchi. No intercostal re tractions. HEART: Regular rate and rhythm. No murmur. ABDOMEN: Soft. Bowel sounds are present. No masses. No tenderness. EXTREMITIES: No pedal edema. No calf tenderness. Effusion noted to the left knee with warmth to touch. No open wounds or drainage. NEUROLOGICAL: Patient is awake, alert and oriented x3. - Labs CBC & Chem 7: 05/01/19 06:35 05/01/19 06:35 Labs: Abnormal Lab Results - Last 24 Hours (Table) 05/01/19 05/01/19 Range/Units 06:35 06:35 WBC 15.4 H (3.8-10.6) k/uL RBC 3.72 L (3.80-5.40) m/uL Hgb 11.1 L (11.4-16.0) gm/dL Plt Count 928 H (150-450) k/uL Carbon Dioxide 31 H (22-30) mmol/L Glucose 128 H (74-99) mg/dL Alkaline Phosphatase 127 H (38-126) U/L Albumin 3.0 L (3.5-5.0) g/dL Microbiology - Last 24 Hours (Table) 04/27/19 08:51 Blood Culture - Preliminary Blood No Growth after 96 hours 04/27/19 09:08 Blood Culture - Preliminary Blood No Growth after 96 hours 04/27/19 14:39 Anaerobic Culture - Final Knee - Left Laboratory Results WBC 15.4 k/uL (3.8-10.6) H 05/01/19 06:35 RBC 3.72 m/uL (3.80-5.40) L 05/01/19 06:35 Hgb 11.1 gm/dL (11.4-16.0) L 05/01/19 06:35 Hct 34.9 % (34.0-46.0) 05/01/19 06:35 MCV 93.8 fL (80.0-100.0) 05/01/19 06:35 MCH 29.9 pg (25.0-35.0) 05/01/19 06:35 MCHC 31.9 g/dL (31.0-37.0) 05/01/19 06:35 RDW 13.8 % (11.5-15.5) 05/01/19 06:35 Plt Count 928 k/uL (150-450) H 05/01/19 06:35 Neutrophils % 65 % 04/30/19 05:40 Lymphocytes % 22 % 04/30/19 05:40 Monocytes % 8 % 04/30/19 05:40 Eosinophils % 3 % 04/30/19 05:40 Basophils % 2 % 04/30/19 05:40 Neutrophils # 9.9 k/uL (1.3-7.7) H 04/30/19 05:40 Lymphocytes # 3.3 k/uL (1.0-4.8) 04/30/19 05:40 Monocytes # 1.2 k/uL (0-1.0) H 04/30/19 05:40 Eosinophils # 0.4 k/uL (0-0.7) 04/30/19 05:40 Basophils # 0.3 k/uL (0-0.2) H 04/30/19 05:40 Hypochromasia Slight 04/30/19 05:40 ESR 86 mm/hr (0-20) H 04/26/19 15:14 PT 15.0 sec (9.0-12.0) H 04/30/19 06:38 INR 1.5 (<1.2) H 04/30/19 06:38 Sodium 139 mmol/L (137-145) 05/01/19 06:35 Potassium 4.7 mmol/L (3.5-5.1) 05/01/19 06:35 Chloride 100 mmol/L (98-107) 05/01/19 06:35 Carbon Dioxide 31 mmol/L (22-30) H 05/01/19 06:35 Anion Gap 8 mmol/L 05/01/19 06:35 BUN 13 mg/dL (7-17) 05/01/19 06:35 Creatinine 0.59 mg/dL (0.52-1.04) 05/01/19 06:35 Est GFR (CKD-EPI)AfAm >90 (>60 ml/min/1.73 sqM) 05/01/19 06:35 Est GFR (CKD-EPI)NonAf 88 (>60 ml/min/1.73 sqM) 05/01/19 06:35 Glucose 128 mg/dL (74-99) H 05/01/19 06:35 Calcium 9.2 mg/dL (8.4-10.2) 05/01/19 06:35 Total Bilirubin 0.6 mg/dL (0.2-1.3) 05/01/19 06:35 AST 36 U/L (14-36) 05/01/19 06:35 ALT 44 U/L (9-52) 05/01/19 06:35 Alkaline Phosphatase 127 U/L (38-126) H 05/01/19 06:35 C-Reactive Protein 149.7 mg/L (<10.0) H 04/26/19 15:14 Total Protein 6.8 g/dL (6.3-8.2) 05/01/19 06:35 Albumin 3.0 g/dL (3.5-5.0) L 05/01/19 06:35 Urine Color Yellow 04/27/19 04:45 Urine Appearance Clear (Clear) 04/27/19 04:45 Urine pH 6.5 (5.0-8.0) 04/27/19 04:45 Ur Specific [place] 1.016 (1.001-1.035) 04/27/19 04:45 Urine Protein Trace (Negative) H 04/27/19 04:45 Urine Glucose (UA) Negative (Negative) 04/27/19 04:45 Urine Ketones Negative (Negative) 04/27/19 04:45 Urine Blood Negative (Negative) 04/27/19 04:45 Urine Nitrite Negative (Negative) 04/27/19 04:45 Urine Bilirubin Negative (Negative) 04/27/19 04:45 Urine Urobilinogen 4.0 mg/dL (<2.0) 04/27/19 04:45 Ur Leukocyte Esterase Negative (Negative) 04/27/19 04:45 Microbiology 04/27/19 08:51 Blood Blood Culture - Preliminary No Growth after 96 hours 04/27/19 09:08 Blood Blood Culture - Preliminary No Growth after 96 hours 04/27/19 14:39 Knee - Left Anaerobic Culture - Final 04/27/19 14:39 Knee - Left Gram Stain - Final 04/27/19 14:39 Knee - Left Wound Culture - Final Escherichia coli 04/27/19 14:39 Knee - Left Fungal Culture - Preliminary Assessment and Plan (1) Septic joint of left knee joint Narrative/Plan: This pleasant 78-year-old woman is noted has just returned from her trip to [place]. She was very cautious about what she ate but certainly did not feel well some of the time because of the difficulties with the food and water. Upon coming home she was doing well until the onset of the severe pain to her knee. Outpatient aspiration showed evidence of E. coli.. Surgical arthroscopic lavage of the left knee shall be occurring today. We discussed the septic arthritis and that intravenous antibiotic therapy is most prudent. Her son and friend are present. Outpatient intravenous antibiotic therapy may be an option however if she is having great difficulties ambulation and since she lives alone may require short-term rehabilitation stay. She wants to go out of town for and then go to [place] where she myers. We discussed how difficult this she'll be in that short period of time. Going from [place] to [place] to complete her course of IV antibiotic therapy may be possible if she has a physician in [place] who could assume the care when she arrives there. There are home care agencies that are multi state and we'll be able to arrange that if she does have a local physician. Weightbearing status as per orthopedic surgery. At this time planning Rocephin which is a daily infusion. The patient is having significant pain and that is being addressed. The patient's baseline laboratories revealed markedly elevated sed rate and CRP that correlated well with the septic arthritis. E. coli has been isolated and will arrange for the outpatient antibiotic therapy she likely will go to rehab to increase her strength and will need to work with the discharge planners to utilize such as corn so that she may finish her treatment in [place] where she would like to go soon for the winter season. 05/01/2019 the patient has had further improvement. Is evidence of the left knee sleetmute joint septic arthritis with E. coli. It is thought that she may have acquired this pathogen while she was traveling in [place] which then seeded her chronically arthritic left knee. She's now had the incision and drainage the site and receiving intravenous antibiotic therapy with Rocephin with some clinical improvement this early in the process. She understands a 42 day course of therapy. Her daughter from [place] is coming to visit and it is likely that she will be able to recuperate there before she gets on the [place]. She will be going to the extended care facility today that we'll need to help them arrange through [employer] or similar [employer] her intravenous antibiotic therapy in the home setting. Status: Acute Code(s): M00.9 - PYOGENIC ARTHRITIS, UNSPECIFIED SNOMED Code(s): 242137318
--- NOTE | 2019-05-01 23:43 | P.PN ---
Progress Note - Text Progress Note Date: 05/01/19 - Chief Complaint Left knee swollen Consultation: This is a very pleasant 78-year-old patient of Dr. Medhat Richardson. Chronic stable medical conditions include GERD, hypertension, hyperlipidemia, primary osteoarthritis, macular degeneration. Had a baseline uses a walker. Patient just went on a group trip to [place] and returned on April 03. Patient subsequently developed pain swelling of the left knee with progressively gotten worse. Also fever and chills. When Dr. Tovar [facility] on April 05. Was given a diagnosis of acute bursitis. Was given antibiotics, local ice pack and told to follow a Dr. Plata. She wanted Dr. Plata's office 2 days ago. In the left knee was drained. I'm not sure this was the bursa or the knee joint. Fluid was positive for E. coli. Patient had been having fever or chills at home. Tired rundown body aches. She was sent in to get admitted for the same. She did have an ultrasound in the ER that showed a popliteal cyst. Negative for DVT. Patient denies any insect bites. No diarrhea. No pretibial skin. No respiratory symptoms. No headaches no dizziness. No other involvement of the joint. Admitted with septic arthritis of the left knee. Status post I&D of the left knee. Today-doing much better. Pain well controlled. Did use a walker. No new issues. Review of systems: Was done for constitutional, cardiovascular, GI, pulmonary. relevant finding as above current medications are reviewed from today's electronic records Physical examination: VITAL SIGNS:98.6, 81, 18, 94% room air GENERAL: Sitting up in the bed, comfortable EYES: Pupils equal. Conjunctiva normal. HEENT: External appearance of nose and ears normal, oral cavity grossly normal. NECK: JVD not raised; masses not palpable. HEART: First and second heart sounds are normal; no edema. LUNGS: Respiratory rate normal; decreased breath sounds. ABDOMEN: Soft, nontender, liver spleen not palpable, no masses palpable. PSYCH: Alert and oriented x3; mood and affect normal. MUSCULOSKELETAL: Evidence of significant OA in the hands. Dressing over the left knee INVESTIGATIONS, reviewed in the clinical context: white count 15.4 hemoglobin 11.1 progression 4.7 creatinine 0.59 Previous testing White count 15.9 hemoglobin 10.6 platelets 694 progression for bun 17 creatinine 0.73 AST 63 ALT 56 alk phos 178 C-reactive protein 149 Sinobronchial fluid-RBC 10,700, nucleated cells 51,000, son over crystals none Venous Doppler-negative for DVT and a left-sided popliteal fossa cyst on April 21 Synovitis fluid culture from April 23 growing-E. coli Wound culture-E. coli Assessment: -Acute septic arthritis of the left knee, status post I&D done on 04/27/2019, wound cultures growing E. coli -Mild hepatitis suspect from infection -GERD -Hyperlipidemia -Essential hypertension -Primary osteoarthritis -Chronic gait dysfunction uses a walker -Left knee popliteal cyst, asymptomatic Plan: patient be receiving 42 days of IV antibiotics per Dr. Raines. Care was discussed with the patient. questions were answered thank youDr. Plata
--- NOTE | 2019-05-03 02:38 | CDI ---
Documentation Clarification Form Date: 05/03/19 From: Con De La Cruz Phone: If you have a question about this query, please contact [facility] Director at [phone] between 8am and 5pm. Admit Date: 04/26/19 Discharge Date: 05/01/19 Patient Name: Kayli Calvillo Visit Number: [id number] ATTENTION: The Clinical Documentation Specialists (CDI) and [facility] Coding Staff appreciate your assistance in clarifying documentation. Please respond to the clarification below the line at the bottom and electronically sign. The CDI & [facility] Coding staff will review the response and follow-up if needed. Please note: Queries are made part of the Legal Health Record. If you have any questions, please contact the author of this message via ITS. Dear Terell Fitzpatrick, This is a 78-year-old female who presents to hospital with septic joint left knee, reno-sparks joint and presented with signs of sepsis including leukocytosis and fever. History/Risk Factors: Septic arthritis, Breast cancer,Cancer, Hyperlipidemia, Hypertension Clinical Indicators: WBC : 15.9 H Blood cultures: negative Vitals signs on admission: Temp 98.1 F, Pulse 69 . Other Clinical Indicators: Fever chills, body aches Treatment:Patient was started on IV ceftriaxone. ID Consult: Tomasz Wei MD Antibiotics: Ceftriaxone, Rocephin. Other : Wound culture is positive for E. coli. Surgery: Partial medial meniscectomy (15% of meniscus excised) Arthroscopy of the right knee with arthroscopic irrigation and debridement for septic arthritis In 04/27 tomasz Mathias consult note stated " presented with signs of sepsis including leukocytosis and fever." In your professional opinion, please clarify Sepsis Presence? Sepsis ruled in Sepsis rule out Other, please specify Unable to determine Sepsis ruled in MTDD
== END 2019-05-01 16:05 | DRG 854 ==
LOC: 4SSUR 12:29
PROVIDERS: ADMIT Orthopaedic Surgery; ATTEND Orthopaedic Surgery
PROC: 0S9D4ZZ Drainage of Left Knee Joint, Percutaneous Endoscopic Approach (ICD-10-PCS; principal; 2019-04-27 10:45)
PROC: 0SBD4ZZ Excision of Left Knee Joint, Percutaneous Endoscopic Approach (ICD-10-PCS; principal; 2019-04-27 10:45)
PROC: 02HV33Z Insertion of Infusion Device into Superior Vena Cava, Percutaneous Approach (ICD-10-PCS; 2019-04-30)
DX: A41.51 Sepsis due to Escherichia coli [E. coli] (principal); M00.862 Arthritis due to other bacteria, left knee; M19.91 Primary osteoarthritis, unspecified site; K75.9 Inflammatory liver disease, unspecified; K21.9 Gastro-esophageal reflux disease without esophagitis; M71.22 Synovial cyst of popliteal space [Baker], left knee; S83.242A Other tear of medial meniscus, current injury, left knee, initial encounter; M94.262 Chondromalacia, left knee; I10 Essential (primary) hypertension; M65.162 Other infective (teno)synovitis, left knee; H35.30 Unspecified macular degeneration; H26.9 Unspecified cataract; R26.9 Unspecified abnormalities of gait and mobility; E78.5 Hyperlipidemia, unspecified; Z60.2 Problems related to living alone; Z79.899 Other long term (current) drug therapy; Z79.82 Long term (current) use of aspirin; Z82.3 Family history of stroke; Z82.49 Family history of ischemic heart disease and other diseases of the circulatory system; Z85.07 Personal history of malignant neoplasm of pancreas; Z85.3 Personal history of malignant neoplasm of breast; Z87.891 Personal history of nicotine dependence; Z90.12 Acquired absence of left breast and nipple; Z98.890 Other specified postprocedural states
CPT/HCPCS: 36573; 80053; 81003; 85025; 85027; 85610; 85652; 86140; 87040; 87070; 87075; 87077; 87102; 87186; 87205